=== PATIENT | female | born 1975 | race Caucasian/White ===

== ENCOUNTER 2024-10-24 13:10 | Outpatient (REF) | payer MEDICAID, SELFPAY ==
[2024-10-24 14:05] LABS: Hematocrit 41.5 % (37.0-47.0); Hemoglobin 13.9 g/dl (12.0-16.0); Mean Corpuscular HGB Conc 33.5 g/dl (31.0-35.0); Mean Corpuscular Hemoglobin 31.9 pg (27.0-33.0); Mean Corpuscular Volume 95.2 fL (80.0-98.0); Platelet Count 187 X10*3/uL (160-400); Red Blood Count 4.36 X10*6/uL (4.20-5.50); Red Cell Distribution Width 12.8 % (11.0-16.0); White Blood Count 7.5 X10*3/uL (4.8-10.8)
[2024-10-24 14:15] LABS: Estimated Average Glucose 88 mg/dL; Hemoglobin A1C 100.0005 umol/L; Hemoglobin A1c % 4.7 % (<6.0); Total Hemoglobin (HGBA1C) 3531.0427 umol/L
[2024-10-24 14:33] LABS: Valproate 39.2 mcg/mL (50.0-100.0)
[2024-10-24 14:46] LABS: Alanine Aminotransferase 17 U/L (0-31); Albumin Level 3.8 g/dL (3.5-5.0); Alkaline Phosphatase 69 U/L (39-117); Anion Gap 11 (12-20); Aspartate Amino Transferase 22 U/L (5-31); Bilirubin Direct 0.1 mg/dL (0.0-0.5); Bilirubin Total 0.3 mg/dL (0.0-1.0); Blood Urea Nitrogen 16 mg/dL (9-16); Calcium 8.4 mg/dL (8.4-10.2); Carbon Dioxide 25 mmol/L (22-29); Chloride 105 mmol/L (96-108); Cholesterol 175 mg/dL (<200); Estimated Glomerular Filt Rate > 60; Glucose Random 95 mg/dL (60-115); HDL Cholesterol 51 mg/dL (>40); LDL Cholesterol Calculated 110 mg/dL (<100); Potassium 3.8 mmol/L (3.3-5.1); Sodium 137 mmol/L (135-145); Total Protein 6.7 g/dL (6.5-8.0); Triglycerides 73 mg/dL (<150)
[2024-10-24 15:00] LABS: Free T4 (Free Thyroxine) 0.78 ng/dL (0.71-1.85); Thyroid Stimulating Hormone 3.13 uIU/mL (0.32-4.0); Vitamin D 25-OH Total 43.3 ng/mL (>30)
[2024-10-24 15:26] LABS: Hepatitis A Antibody IgG Nonreactive (Nonreactive); ~Hepatitis A Antibody IgG 0.31 S/CO (0.00-0.99)
[2024-10-24 15:27] LABS: HBc Num1 0.12 S/CO (0.00-0.79); HBsAGNum1 0.38 S/CO (0.00-0.99); HIV AB/AG Nonreactive (Nonreactive); HIV Num 1 0.06 S/CO (0.00-0.99); Hepatitis B Core Antibody Nonreactive (Nonreactive); Hepatitis B Surface Antigen Negative (Negative); ~HepC Num1 0.15 S/CO (0.00-0.79); ~Hepatitis B Surface Antibody NONREACTIVE (Nonreactive); ~Hepatitis C Antibody Nonreactive (Nonreactive)
[2024-10-24 15:48] LABS: CT PCR NOT DETECTED (Not Detect.); NG PCR NOT DETECTED (Not Detect.)
[2024-10-25 12:18] LABS: RPR Rapid Plasma Reagin NON-REACTIVE (NON-REACTIVE)
== END 2024-10-24 13:11 | disposition home or self-care (01) ==
LOC: HO.LAB 13:10
PROVIDERS: PCP Family Medicine; Visit Provider Family Medicine
DX: Z11.3 Encounter for screening for infections with a predominantly sexual mode of transmission (principal); Z11.4 Encounter for screening for human immunodeficiency virus [HIV]; R56.9 Unspecified convulsions; Z86.79 Personal history of other diseases of the circulatory system
CPT/HCPCS: 80048; 80061; 80076; 80164; 82306; 83036; 84439; 84443; 85027; 86592; 86704; 86706; 86708; 86803; 87340; 87389; 87491; 87591

== ENCOUNTER 2024-12-18 13:10 | Outpatient (REF) | payer MEDICAID, SELFPAY ==
--- NOTE | ~2024-12-18 | US_ITS ---
CLINICAL HISTORY: episode of post menopausal spotting US pelvis Transabdominal and transvaginal Comparison: None Findings: Uterus measures 5.9 x 3.3 x 4.1 cm Normal myometrium. Endometrium 4 mm thickness. Right ovary 1.8 x 1.2 x 1m. Left ovary 1.4 x 1.2 x 1.6 cm. No free fluid. IMPRESSION: Unremarkable exam. No evidence of endometrial thickening. This document has been electronically signed by: Oksana Carmona MD on 12/19/2024 10:43:26
--- OUTSIDE RECORDS SUMMARY | 2024-12-18 13:28 | XMS_ITS | Encounter Summary ---
Author Organization [facility] Address [address] [place] [address] Care Team Providers Care Diploma Maker Name Role Phone Jalen Martinez MD Primary Care [facility] Reason for Visit * Consultation (Routine) - Authorized Specialty Diagnoses / Procedures Referred By Contdakota t Referred To Contact Physical Therapy Diagnoses SAH (subarachnoid hemorrhage) (CMS/HCC) Subarachnoid hemorrhage ([facility]/HCC) Dayana James, [place] [address] Phone: tel: fax: [address] [address] Phone: tel: fax: Referral ID Status Reason Start Date Expiration Date Visits Requested Visits Authorized [id number] Authorized Specialty Services Required 4 09/11/2025 20 12 Encounter Details Date Type Department Care Team (Late st Contact Info) Description 11/21/2024 2:15 PM EST Treatment [address] [address] Mary Olmstead PT SAH (subarachnoid hemorrhage) (CMS/HCC) (Primary Dx) Social History Tobacco Use Types Packs/Day Years Used Date Smoking Tobacco: Former Cigarettes Q uit: 2012 Alcohol Use Standard Drinks/Week Comments Yes 3 (1 standard drink = 0.6 oz pur e alcohol) Health Literacy Answer Date Recorded How often do you need to hav e someone help you when you read instructions, pamphlets, or other written material from your doctor or pharmacy? Never 10/01/2024 Caregiver: How often do you need to have someone help you when you read instructions, pamphlets, or other written material from your doctor or pharmacy? Not on file 10/01/2024 Social Isolation Answer Date Recorded How often do you feel lonely or isolated from th ose around you? Never 10/01/2024 Interpersonal Safety Answer Date Record ed Physical Abuse 09/07/2024 Verbal Abuse 09/07/2024 Comments Unknown Sex and Gender Information Value Date Recorded Sex Assigned at Female 12/13/2024 11:15 AM EST Legal Sex Female 8:53 AM EST Gender Identity Female 12/13/2024 11:15 AM EST Sexual Orientation Straight 12/13/2024 11 :15 AM EST documented as of this encounter Progress Notes * Mary Olmstead PT - 11/21/2024 2:15 PM EST [facility] - Outpatient PHYSICAL THERAPY DAILY TREATMENT NOTE - OP Date: 11/21/2024 Visit Number: 3 Patient Name: Jessica Arana : 1975 Age: 48 y.o. Gender: female Diagnosis: ICD-10-CM ICD-9-CM 1. SAH (subarachnoid hemorrhage) (CMS/[facility]) I60.9 430 Date of Onset/Surgery: 11/06/2024 Referring Provider: Dayana James DO Insurance: Payor: [place]ICA[place] - [place] / Plan: MEDICA[place] - [place] / Product Type: *No Product type* / Patient Identified by: Mary Olmstead PT Language: Samoan Medications: Current Outpatient Medications on File Prior to Visit Medication Sig Dispense Refill cholecalciferol (VITAMIN D-3) 50 mcg (2,000 unit) tablet Take 1 tablet (2,000 Units total) by mouth1 (one) time each day. 30 tablet 0 cyanocobalamin (VITAMIN B-12) 100 mcg tablet Take 1 tablet (100 mcg total) by mouth 1 (one) time each day. divalproex (DEPAKOTE ER) 250 mg 24 hr tablet Take 1 tablet (250 mg total) by mouth at bedtime. Do not crush, chew, or split. 30 each 0 divalproex (DEPAKOTE ER) 500 mg 24 hr tablet Take 1 tablet (500 mg total) by mouth 1 (one) time each day in the morning. Do not crush, chew, or split. 30 each 0 folic acid (FOLVITE) 1 mg tablet Take 1 tablet (1 mg total) by mouth 1 (one) time each day. thiamine 100 mg tablet Take 1 tablet (100 mg total) by mouth 1 (one) time each day. traZODone (DESYREL) 50 mg tablet Take 0.5 tablets (25 mg total) by mouth at bedtime. 15 each 0 No current facility-administered medications on file prior to visit. Allergies: is allergic to ibuprofen. Precautions: Fall risk: No Patient/Caregiver Goals: SUBJECTIVE Subjective Report: No new complaints since evaluation last visit Chart Reviewed: Yes Pain No pain of BLE OBJECTIVE TREATMENT INTERVENTION: Modalities: None performed Procedures: Nustep at level 5 B Les only as a neural primer Sit-stands from mat to no device with arms crossed and R foot on foam beam to improve L sided weight bearing. Pt needing cues to remain on L midfoot and not rise up onto toes. B LE gastroc stretch on wedge, 2x30 seconds. B LE toe taps to steps. Impaired coordination noted which was exacerbated with cue for double tap. Pt also with stance control deficit on L LE with intermittent cross over step and reach to rail to correct imbalance. R LE step ups to 6 in block in parallel bars with L LE prepositioned on box to improve L LE strength and weightbearing. 2 rounds to fatigue Toe walking for functional strengthening of PF and improved balance. Heel walking for functional strengthening of DF and balance control. Reduced DF activation on L side with rapid stepping rate and reduced step length. Sidestepping with blue band around B distal femurs to increase strength in B abductors. ASSESSMENT/Response to Treatment Good Pt tolerated session well. Pt demonstrating impaired coordination and reduced strength in L LEresulting in functional deficits. Will continue to benefit. Patient Education: Education provided: Yes Education Provided To: Patient utilizing Explanation mode(s) of education Response to Education: Applied Knowledge and Verbal Understanding PLAN POC Development/Review: No Change in the Plan of Care; Participants: Patient Total Treatment Time: 30 Modalities: Therapeutic procedures: Therapeutic Exercise Time Entry: 30 Documentation completed by Mary Olmstead PT documented in this encounter Plan of Treatment Upcoming Encounters Date Type Department Care Team (Late st Contact Info) Description 12/19/2024 1:00 PM EST Treatment [facility] [address] [phone] Lauri Rivera COTA/L 12/19/2024 1:45 PM EST [facility] [address] [address] Jayjay Childs, INSTRUMENT REPAIR TECHNICIAN 12/24/2024 12:30 PM EST Treatment [facility] [address] [address] Lauri Rivera COTA/Teena 12/26/2024 11:15 AM EST Treatment [facility] [address] [address] Erasmo Choudhury, OT 12/26/2024 12:00 PM EST [facility] [address] [address] Jayjay Childs, INSTRUMENT REPAIR TECHNICIAN 01/01/2025 1:00 PM EST Treatment [facility] [address] [phone] Bea Rebollar, PT 01/01/2025 1:45 PM EST [facility] [address] [address] Jayjay Childs, INSTRUMENT REPAIR TECHNICIAN 01/03/2025 11:15 AM EST Treatment [facility] [address] [phone] Jayjay Childs, INSTRUMENT REPAIR TECHNICIAN 01/08/2025 1:15 PM EDT [facility] [address] [address] Lauri Rivera GODOY/L 01/08/2025 2:00 PM EDT Treatment [facility] [address] [phone] Keturah Bea, PT 01/10/2025 12:30 PM EDT Treatment [facility] [address] [phone] Nicole LauriDANIELA/Teena 01/13/2025 12:30 PM EDT Treatment [facility] [address] [facility] [address] [place] [address] Erasmo Choudhury, OT documented as of this encounter Goals Goal Patient Goal Type Associated Problems Recent Progress Patient-Stated? Author Pt goal General Yes Erasmo Choudhury, OT Note: To be back to normal STG 6-8 visits General No change(12/02 4:58 PM EST) Yes Erasmo Choudhury, OT Note: Patient will demo Lsh flex AROM>= 130 to be able to reach the soap in the shower - Not Met Patient will demo L sh abd AROM>= 100 to be able to dress with increased ease - Not met Patient will demo L family medicine physician assistant strength >= 19 to be able to open a jar with moderate difficulty - Not met Patient will demo L lateral pinch strength >= 11 to be able to open snack bags - Not met Patient will demo improved FMC as evidenced by L 9 hole peg test<= 49 sec to be able to manipulate utensils - Not met Patient will demo improved GMC as evidenced by L box and blocks score >= 38 to be able todress with increased ease - Not Met Patient will demo improved functional use of L upper extremity as evidenced by Quick Dash score <= 30 to be able to perform IADLS with increased ease - Not Met Patient will perform initial HEP MOD I LTG 16 visits General No change(12/02 4:58 PM EST) No Erasmo Choudhury, OT Note: Patient will demo L UE AROM WFL Patient will demo L UE strength WFL for IADLs, Patient will demo L family medicine physician assistant strength >= 24# to be able to hold a pot for cooking, Patient will demo L lateral pinch strength >= 13 to be able to open containers, Patient will demo improved FMC as evidenced by L 9 hole peg test<= 45 sec to be able to manipulate utensils, Patient will demo improved GMC as evidenced by L box and blocks score >= 42 to be able to paint, Patient will demo improved functional use of L upper extremity as evidenced by Quick Dash score <= 25 to be able to decorate cakes, and Patient will perform HEP MOD I PT STGs (x6 visits) General Yes Bea Rebollar PT Note: Improve L hip extension and abduction strength to >/= 4-/5 for functional mobility and stability Improve score on CAT to 56/56 for improvements in static and dynamic balance and stability Complete sit to stand with equal weight bearing between LLE and RLE PT LTGs (x12 visits) General Yes Bea Rebollar PT Note: Improve score on 5xSTS to </= 12 seconds to show increase in functional strength and decreased falls risk Improve score on 6MWT to >/= 1300ft to show improvement in endurance Improve score on FGA to >/= 25 to show improvements in dynamic balance. 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 Pt will improve L hip flexion, extension and abduction to >/= 4/5 for strength and stability Pt will be independent with HEP for maintenance of gains made in skilled physical therapy documented as of this encounter Visit Diagnoses Diagnosis SAH (subarachnoid hemorrhage) (CMS/HCC)- Primary Subarachnoid hemorrhage documented in this encounter Additional Health Concerns Assessment Noted Time PHQ-9 Depression Total Score: 0 10/01/20 24 5:02 PM EST documented as of this encounter Care Teams Diploma Maker Relationship Specialty Start Date End Date Jalen Martinez MD [address] [place] [phone] PCP - General Internal Medicine 10/01/24 documented as of this encounter
--- OUTSIDE RECORDS SUMMARY | 2024-12-18 13:28 | XMS_ITS | Encounter Summary ---
Author Organization [facility] Address [address] [place] [address] Care Team Providers Care Crisis Therapist Name Role Phone Jalen Martinez MD Primary Care [facility] Encounter Details Date Type Department Care Team (Late Contact Info) Description 12/12/2024 Telephone [facility] [address] [phone] Lauri Rivera COTA/Teena Social History Tobacco Use Types Packs/Day Years [...] AM EST documented as of this encounter Plan of Treatment Upcoming Encounters Date Type Department Care Team (Late st Contact Info) Description 12/19/2024 1:00 PM EST Treatment [facility] [address] [address] Lauri Rivera COTA/Teena 12/19/2024 1:45 PM EST Treatment [facility] [address] [phone] Jayjay Childs, FINANCIAL INSTITUTION BRANCH MANAGER 12/24/2024 12:30 PM EST Treatment [facility] [address] [address] Lauri Rivera GODOY/L 12/26/2024 11:15 AM EST Treatment [facility] [address] [address] Erasmo Choudhury, OT 12/26/2024 12:00 PM EST Treatment [facility] [address] [address] Jayjay Childs, FINANCIAL INSTITUTION BRANCH MANAGER 01/01/2025 1:00 PM EST Treatment [facility] [address] [address] Bea Rebollar, PT 01/01/2025 1:45 PM EST Treatment [facility] [address] [address] Jayjay Childs, FINANCIAL INSTITUTION BRANCH MANAGER 01/03/2025 11:15 AM EST Treatment [facility] [address] [facility] [address] [address] Jayjay Childs, FINANCIAL INSTITUTION BRANCH MANAGER 01/08/2025 1:15 PM EDT Treatment [facility] [address] [address] Lauri Rivera GODOY/L 01/08/2025 2:00 PM EDT Treatment [facility] [address] [phone] Bea Rebollar, PT 01/10/2025 12:30 PM EDT [facility] [address] [place] [address] Tabatha RiveragraceWALT maldonado/Teena 01/13/2025 12:30 PM EDT Treatment [facility] [address] [phone] Erasmo Choudhury, OT documented as of [...] - Not met Patient 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 Pt will improve L hip flexion, extension and abduction to >/= 4/5 for strength and stability Pt will be independent with HEP for maintenance of gains made in skilled physical therapy documented as of this encounter Visit Diagnoses Not on filedocumented in this encounter Additional Health Concerns Assessment Noted Time PHQ-9 Depression Total Score: 0 10/01/20 24 5:02 PM EST documented as of this encounter Care Teams Crisis Therapist Relationship Specialty Start Date End Date Jalen Martinez MD [address] [place] [phone] PCP - General Internal Medicine 10/01/24 documented as of this encounter
--- OUTSIDE RECORDS SUMMARY | 2024-12-18 13:28 | XMS_ITS | Encounter Summary ---
Author Organization [employer] Address [address] [place] [address] Care Team Providers Care Quality Nurse Name Role Phone Patricia Sun Primary Care Provider + [phone] Encounter Details Date Type Department Care Team (Latest Contact Info) Description 11/22/2024 Travel Social History Tobacco Use Types Packs/Day Years Used Date Smoking Tobacco: Never Passive Smoke Exposure: Never Smokeless Tobacco: Never Alcohol Answer Date Recorded How often do you have a drink containing alcohol ? 1 10/10/2024 How many drinks containing a lcohol do you have on a typical day when you are drinking? 0 10/10/2024 How often do you have six or more drinks on one occasion? 0 10/10/2024 Depression Answer Date Recorded Patient Health Questionnaire-9 Score 5 10/10/2024 Patient Health Questionnaire-9 Score 5 10/10/2024 Last PHQ-9: Questionnaire Data Not on file 1 12/11/2023 Housing Stability Answer Date Recorded What is your housing situation today? I have concepción astudillo 10/10/[address] you li ve. Do you have problems with any of the following? None of the above 10/10/2024 Food Insecurity Answer Date Recorded Within the past 12 months, y ou worried that your food would run out before you got money to buy more: Never True 10/10/2024 Within the past 12 months,th e food you bought just didn't last and you didn't have enough money to get more: Never True 09/2024 Transportation Answer Date Recorded In the past 12 months, has l ack of transportation kept you from medical appts, meetings, work or from getting things needed for daily living? No 10/10/2024 Utilities Answer Date Recorded In the past 12 months, has t he electric, gas, oil or water company threatened to shut off services in your home? No 10/10/2024 Depression Answer Date Recorded Patient Health Questionnaire-2 Score 0 10/10/2024 Internet Access Answer Date Recorded Internet Access Q1 Yes 10/10/2024 Internet Access Q2 Not on file 10/10/2024 Comments Unknown Sex and Gender Information Value Date Recorded Sex Assigned at Unknown 10/10/2024 11:22 AM EST Legal Sex Female 11:27 AM EDT Gender Identity Other 10/10/2024 11:22 AM EST Sexual Orientation Don't know 10/10/2024 11 :22 AM EST documented as of this encounter Plan of Treatment Upcoming Encounters Date Type Department Care Team (Late st Contact Info) Description 03/17/2025 3:30 PM EDT Office Visit [facility] [address] [place] [address] Ihsan, Aura, OD [address] [place] [address] documented as of this encounter Visit Diagnoses Not on filedocumented in this encounter Additional Health Concerns Assessment Noted Time PHQ-9 Depression Total Score: 5 10/10/20 11:44 AM EST documented as of this encounter Care Teams Quality Nurse Relationship Specialty Start Date End Date Patricia Sun DO [address] [place] [address] PCP - General Family Medicine 10/10/24 documented as of this encounter
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
--- OUTSIDE RECORDS SUMMARY | 2024-12-18 13:28 | XMS_ITS | Encounter Summary ---
Author Organization [facility] Address [address] [place] [address] Care Team Providers Care Booking Manager Name Role Phone Jalen Martinez MD Primary Care [facility] Reason for Visit * Consultation (Routine) - Authorized Specialty Diagnoses / Procedures Referred By Contdakota t Referred To Contact Occupational Therapy Diagnoses SAH (subarachnoid hemorrhage) ([facility]/HCC) Subarachnoid hemorrhage ([facility]/HCC) Dayana James DO [address] [place] [address] Phone: tel: fax: [facility] Occupational Therapy [address] [address] Phone: tel: fax: Referral ID Status Reason Start Date Expiration Date Visits Requested Visits Authorized [id number] Authorized Specialty Services Required 09/11/2025 20 16 Encounter Details Date Type Department Care Team (Late st Contact Info) Description 11/21/2024 1:00 PM EST Treatment [facility] [address] [phone] Consuelo Ro COTA SAH (subarachnoid hemorrhage) ([facility]/HCC) (Primary Dx) Social History Tobacco Use Types [...] as of this encounter Progress Notes * WALT Pineda - 11/21/2024 1:00 PM EST [facility] - Outpatient OCCUPATIONAL THERAPY DAILY TREATMENT NOTE Date: 11/21/2024 Visit Number: [id number] Patient Name: Jessica Arana : 1975 Age: 48 y.o. Gender: female Diagnosis: No diagnosis found. Date of Onset: 09/11/2024 Referring Provider: Dayana James DO Insurance: Pay[place] / Plan[place] / Product Type: *No Product type* / Language: Speaks and understands Belizean as preferred language with no yard associate required Allergies: is allergic to ibuprofen. Precautions: None specified SUBJECTIVE Subjective Report: I felt a pop in my L shld when my rolled over and pushed himself up.and hurts with certain movement when I am laying down. Pain: More tightness in bicep and into forearm. 04/08 OBJECTIVE Pt able to manage personal items TREATMENT INTERVENTION Procedures: MHP to L UE. While performing FMC with small pegs. Pt manipulating 4-6 pegs in hand to place in board. Pt dropping pegs frequently , able to pick them up from table 1 at a time. Pt removed pegs and place them in slotted container. In side lying scap mobs, and AAROM for shld abd in no pain Range.supine AROM shld flexion/ext to 90degrees with no pain and increase control IR /ER with no pain. Pain Reassessment: no pain with exercises. Recommended pt do activities in pain free range. And have family help with heavy items. Per pt reports family has been helping with task. Assessment/Response To Treatment: Good Pt tolerated exercises with no pain Patient Education: Education provided: Yes Education Provided To: Patient utilizing Explanation mode(s) of education Response to Education: Good PLAN POC Development/Review: No Change in the Plan of Care; Participants: Patient Equipment Recommended: none; Equipment Provided: none Total Treatment Time: 45 Documentation completed by WALT Pineda documented in this encounter Plan of Treatment Upcoming Encounters Date Type Department Care Team (Late st Contact Info) Description 12/19/2024 1:00 PM EST Treatment [facility] Occupational Therapy [address] [place] [phone] Lauri Rivera COTA/Teena 12/19/2024 1:45 PM EST Treatment [address] [phone] Jayjay Childs, REPAIR TECHNICIAN 12/24/2024 12:30 PM EST Treatment [facility] Occupational Therapy [address] [place] [phone] Lauri Rivera COTA/Teena 12/26/2024 11:15 AM EST Treatment [facility] Occupational Therapy [address] [place] [phone] Erasmo Choudhury, OT 12/26/2024 12:00 PM EST Treatment [facility] [address] [phone] Jayjay Childs, REPAIR TECHNICIAN 01/01/2025 1:00 PM EST Treatment [facility] [address] [phone] Bea Rebollar, PT 01/01/2025 1:45 PM EST Treatment [address] [phone] Jayjay Childs, REPAIR TECHNICIAN 01/03/2025 11:15 AM EST Treatment [facility] [address] [phone] Jayjay Childs, REPAIR TECHNICIAN 01/08/2025 1:15 PM EDT Treatment [facility] Occupational [facility] [address] [phone] Lauri Rivera GODOY/Teena 01/08/2025 2:00 PM EDT Treatment [facility] [address] [phone] Bea Rebollar, PT 01/10/2025 12:30 PM EDT Treatment [facility] Occupational [facility] [address] [phone] Lauri Rivera GODOY/L 01/13/2025 12:30 PM EDT Treatment [facility] Occupational [facility] [address] [phone] Erasmo Choudhury, OT documented as of this [...] - Not met Patient will demo L public information specialist strength >= 19 to be able to [...] WFL for IADLs, Patient will demo L public information specialist strength >= 24# to be able to [...] PT STGs (x6 visits) General Yes Bea Rebollar, PT Note: Improve L hip extension and abduction strength to >/= 4-/5 for functional mobility and stability Improve score on CAT to 56/56 for improvements in static and dynamic balance and stability Complete sit to stand with equal weight bearing between LLE and RLE PT LTGs (x12 visits) General Yes Bea Rebollar, PT Note: Improve score on 5xSTS to </= 12 seconds to show increase in functional strength and decreased falls risk Improve score on 6MWT to >/= 1300ft to show improvement in endurance Improve score on FGA to >/= 25 to show improvements in dynamic balance. 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 Pt will improve L hip flexion, extension and abduction to >/= 4/5 for strength and stability Pt will be independent with HEP for maintenance of gains made in skilled physical therapy documented as of this encounter Visit Diagnoses Diagnosis SAH (subarachnoid hemorrhage) ([facility])- Primary Subarachnoid hemorrhage documented in this encounter Additional Health Concerns Assessment Noted Time PHQ-9 Depression Total Score: 0 10/01/20 24 5:02 PM EST documented as of this encounter Care Teams Booking Manager Relationship Specialty Start Date End Date Jalen Martinez MD [address] [place] [address] PCP - General Internal Medicine 10/01/24 documented as of this encounter
--- OUTSIDE RECORDS SUMMARY | 2024-12-18 13:28 | XMS_ITS | Encounter Summary ---
Author Organization [employer] Address [address] [facility] [address] [place] [address] Care Team Providers Care Gambling Box Person Name Role Phone Patricia Sun DO Primary Care Provider + [phone] Reason for Visit * Reason Comments Pre-visit Planning (Unable to reach for PVP screening, LVM) Encounter Details Date Type Department Care Team ([facility] Contact Info) Description 11/19/2024 Patient Outreach [facility] [address] [place] [address] Patricia Sun DO [address] [place] [address] Pre-visit Planning ((Unable to reach for PVP screening, LVM)) Social History Tobacco Use Types Packs/Day Years [...] as of this encounter Progress Notes * Jeane Dickinson - 11/19/2024 1:11 PM EST CC Jeane. Placed outbound call to patient to complete pre-visit planning. No answer at this time. Patient name and were not confirmed. CC left voicemail requesting return call. Direct contact information provided. documented in this encounter Plan of Treatment Upcoming Encounters Date Type Department Care Team (Late st Contact Info) Description 03/17/2025 3:30 PM EDT Office Visit [facility] OPTOMETRY [address] [place] [address] Ihsan, Aura, OD [address] [place] [address] documented as of this encounter Visit Diagnoses Not on filedocumented in this encounter Additional Health Concerns Assessment Noted Time PHQ-9 Depression Total Score: 5 10/10/20 24 11:44 AM EST documented as of this encounter Care Teams Gambling Box Person Relationship Specialty Start Date End Date Patricia Sun DO [address] [place] [address] PCP - General Family Medicine 10/10/24 documented as of this encounter
--- OUTSIDE RECORDS SUMMARY | 2024-12-18 13:28 | XMS_ITS | Encounter Summary ---
Author Organization [employer] Address [address] [facility] [address] [place] [address] Care Team Providers Care Extra Hand Name Role Phone Patricia Sun Primary Care Provider + [phone] Encounter Details Date Type Department Care Team (Latest Contact Info) Description 11/26/2024 Travel Social History Tobacco Use Types Packs/Day [...] Description 03/17/2025 3:30 PM EDT Office Visit [facility] OPTOMETRY [address] [place] [address] Ihsan, Aura, OD [address] [place] [address] documented as of this encounter Visit Diagnoses Not on filedocumented in this encounter Additional Health Concerns Assessment Noted Time PHQ-9 Depression Total Score: 5 10/10/20 11:44 AM EST documented as of this encounter Care Teams Extra Hand Relationship Specialty Start Date End Date Patricia Sun DO [address] [place] [address] PCP - General Family Medicine 10/10/24 documented as of this encounter
--- OUTSIDE RECORDS SUMMARY | 2024-12-18 13:28 | XMS_ITS | Clinical Summary ---
Author Organization [employer] Address [address] [facility] [address] [place] [address] Care Team Providers Care Service Order Dispatcher Chief Name Role Phone Patricia Sun Primary Care Provider + [phone] Allergies Active Allergy Reactions Criticality Noted Date Comments Bee Venom Hives 11/24/2024 Grapefruit Concentrate Swelling 11/24/2024 Ibuprofen Swelling 09/04/2024 Medications divalproex (Depakote ER) 500 MG 24 hr tablet Take 1 tablet by mouth in the morning. Do not crush, chew or split. Active cholecalcifero l (Vitamin D-3) 50 MCG (1999 UT) tablet Take 1 tablet by mouth Once per day. 10/02/20 24 025 Active tiZANidine (Zanaflex) 2 MG tablet Take 1 tablet (2 mg) by mouth if needed in the morning, at noon, and at bedtime for muscle spasms. 60 tablet 1 12/02/19 25 026 Active acetaminophen (Tylenol 8 Hour) 650 MG ER tablet Take 1 tablet (650 mg) by mouth every 8 (eight) hours if needed for mild pain. Do not crush, chew, or split. 50 tablet 1 12/02/19 25 026 Active lacosamide (Vimpat) 100 MG tablet TAKE 1 TABLET BY MOUTH EVERY DAY AT BEDTIME FOR 1 WEEK THEN INCREASE TO 1 TABLET TWICE A DAY Active tiZANidine (Zanaflex) 2 MG tablet Take 1 tablet (2 mg) by mouth if needed in the morning, at noon, and at bedtime for muscle spasms. 60 tablet 1 11/29/19 25 025 Discontinued(Re order (will not trigger notification to Pharmacy)) acetaminophen (Tylenol 8 Hour) 650 MG ER tablet Take 1 tablet (650 mg) by mouth every 8 (eight) hours if needed for mild pain. Do not crush, chew, or split. 50 tablet 1 11/29/19 25 025 Discontinued(Re order (will not trigger notification to Pharmacy)) Active Problems Problem Noted Date Diagnosed Date History of subarachnoid hemorrhage 11/24/2024 History of traumatic brain injury 11/24/2024 History of seizures 11/24/2024 Encounters Date Type Department Care Team Description 12/02/2024 Refill [facility] [address] [place] [phone] Patricia Sun DO 11/29/2024 11:15 AM EST Office Visit [facility] [address] [place] [phone] Patricia Sun DO Routine history and physical examination of adult (Primary Dx); Seizure disorder (CMS/HCC); History of subarachnoid hemorrhage; Abnormal MRI, cervical spine; Postmenopausal bleeding; BMI 23.0-23.9, adult; Encounter for screening for malignant neoplasm of colon; Encounter for screening mammogram for malignant neoplasm of breast 11/29/2024 Telephone [facility] [address] [place] [phone] Delia Muhammad MA Confirm Pharmacy 11/29/2024 Travel 11/26/2024 3:30 PM EST Office Visit [facility] [address] [place] [address] Aura Champagne, OD History of subarachnoid hemorrhage (Primary Dx); 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; Blepharitis of both eyes, unspecified eyelid, unspecified type; PVD (posterior vitreous detachment), right eye; Presbyopia of both eyes 11/26/2024 Travel 11/25/2024 Telephone [facility] [address] [place] [address] Aura Champagne, OD 11/22/2024 Travel 11/19/2024 Patient Outreach [facility] [address] [place] [address] Patricia Sun DO Pre-visit Planning ((Unable to reach for PVP screening, LVM)) 11/08/2024 Orders Only [facility] [address] [place] [address], [place] [address] Patricia Sun DO Subarachnoid hemorrhage (CMS/HCC) (Primary Dx) 11/07/[address] [phone] Violeta Callaway, RN Results 11/06/[address] [address] Patricia Sun DO Referral 10/17/[address] [phone] Patricia Sun DO fyi 10/10/2024 11:15 AM EST Office Visit [address] [address] Patricia Sun DO Diffuse brain injury, with unknown loss of consciousness status, initial encounter (CMS/HCC) (Primary Dx); History of subarachnoid hemorrhage; Abnormal MRI, cervical spine; Seizure-like activity (CMS/HCC); Decreased visual acuity; Closed fracture of nasal bone, initial encounter; Postmenopausal bleeding 10/10/2024 Travel 10/09/2024 Travel 10/09/2024 Patient Outreach [address] [address] Chika Arias, IVORY Care Coordination (RACE RELATIONS PROFESSOR/HDF Appt) 10/03/2024 Travel 10/03/[address] [address] Jackie Frost MA Chat Prep 09/24/2024 Patient Outreach [facility] [address] [place], [place] [phone] Jalen Coyne MD Transition Of Care (Tcm) (HDF scheduled. SDOH will need to be completed in office. ) from Last 3 Months Immunizations Name Administration Dates Next Due Tdap 03/22/2012 Family History Relation Name Status Comments Brother Father Father's Brother Father's Sister Maternal Grandfather Maternal Grandmother Mother Mother's Brother Mother's Sister Other Paternal Grandfather Paternal Grandmother Sister Social History Tobacco Use Types Packs/Day Years Used Date Smoking Tobacco: Former Cigarettes Passive Smoke Exposure: Never Smokeless Tobacco: Never Tobacco Cessation:Counseling Given: Not Answered Alcohol Use Standard Drinks/Week Comments Not Currently [...] Don't know 10/10/2024 11 :22 AM EST Last Filed Vital Signs Vital Sign Reading [...] Mass Index 23.45 11/29/2024 11:26 AM EST Plan of Treatment Upcoming Encounters Date Type Department Care Team (Late st Contact Info) Description 03/17/2025 3:30 PM EDT Office Visit [facility] [address] [place] [facility], [place] [phone] Ihsan, Aura, OD [address] [place] [address] Health Maintenance Due Date Last Done Comments CT Colonography 1974 Colonoscopy 1974 Colorectal Cancer Screening 1974 FIT DNA/Cologuard 1974 FIT 1974 FOBT 1974 Sigmoidoscopy 1974 Family Planning (PISQ) 1989 Hepatitis B Vaccines (1 of 3 - 19+ 3-dose series) 1993 Pap Smear 1995 Cervical Cancer Screening 2004 HPV/Cotest 2004 Mammogram 2014 DTaP/Tdap/Td Vaccines (2 - T d or Tdap) 03/22/2022 03/22/2012 COVID-19 Vaccine (1 - 2023-2 5 season) 2024 Influenza Vaccine (#1) 2024 Pneumococcal Vaccine: 50+ Years (1 of 1 - PCV) 2024 Zoster Vaccines (1 of 2) 2024 Depression Screening 10/10/2025 10/10/2024, 10/10/2024 SDOH Screening 10/10/2025 10/10/2024 Alcohol/Substance Use Screening 11/29/2025 11/29/2024 Tobacco Screening 12/13/2025 12/13/2024 Lipid Panel 10/24/2029 10/24/2024 RSV Patients and Patients Aged 60 years or older (1 - 1-dose 75+ series) 2049 HIV Screening Completed 10/24/2024 Hepatitis C Screening Completed 10/24/2024 HIB Vaccines Aged Out No longer eligi ble based on patient's age to complete this topic HPV Vaccines Aged Out No longer eligi ble based on patient's age to complete this topic Hepatitis A Vaccines Aged Out No long er eligible based on patient's age to complete this topic IPV Vaccines Aged Out No longer eligi ble based on patient's age to complete this topic Meningococcal Vaccine Aged Out No key ellen eligible based on patient's age to complete this topic RSV under 20 months Aged Out No longe r eligible based on patient's age to complete this topic Rotavirus Vaccines Aged Out No longer eligible based on patient's age to complete this topic Procedures Procedure Name Priority Date/Time Associated Diagnosis Comments OCT, OPTIC NERVE - OU - BOTH EYES Routine 11/26/2024 3:30 PM EST 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 VALPROIC ACID Routine 10/24/2024 1:54 PM EST Seizure-like activity (CMS/HCC) History of subarachnoid hemorrhage HEPATITIS B CORE AB TOTAL Routine 10/24/2024 1:54 PM EST Seizure-like activity (CMS/HCC) History of subarachnoid hemorrhage HEPATITIS A ANTIBODY, TOTAL Routine 10/24/2024 1:54 PM EST Seizure-like activity (CMS/HCC) History of subarachnoid hemorrhage HEPATITIS B SURFACE ANTIBODY, QUALITATIVE Routine 10/24/2024 1:54 PM EST Seizure-like activity (CMS/HCC) History of subarachnoid hemorrhage RPR (MONITOR) W/REFL TITER Routine 10/24/2024 1:54 PM EST Seizure-like activity (CMS/HCC) History of subarachnoid hemorrhage HEPATITIS C AB W/REFL TO HCV RNA, QN, PCR Routine 10/24/2024 1:54 PM EST Seizure-like activity (CMS/HCC) History of subarachnoid hemorrhage HIV 1/2 ANTIGEN/ANTIBODY, FOURTH GENERATION W/RFL Routine 10/24/2024 1:54 PM EST Seizure-like activity (CMS/HCC) History of subarachnoid hemorrhage HEPATITIS B SURFACE ANTIGEN, EIA Routine 10/24/2024 1:54 PM EST Seizure-like activity (CMS/HCC) History of subarachnoid hemorrhage BASIC METABOLIC PANEL Routine 10/24/2024 1:54 PM EST Seizure-like activity (CMS/HCC) History of subarachnoid hemorrhage CBC Routine 10/24/2024 1:54 PM EST Seizure-like activity (CMS/HCC) History of subarachnoid hemorrhage HEMOGLOBIN A1C Routine 10/24/2024 1:54 PM EST Seizure-like activity (CMS/HCC) History of subarachnoid hemorrhage HEPATIC FUNCTION PANEL Routine 10/24/2024 1:54 PM EST Seizure-like activity (CMS/HCC) History of subarachnoid hemorrhage VITAMIN D,25-OH,TOTAL,IA Routine 10/24/2024 1:54 PM EST Seizure-like activity (CMS/HCC) History of subarachnoid hemorrhage TSH Routine 10/24/2024 1:54 PM EST Seizure-like activity (CMS/HCC) History of subarachnoid hemorrhage LIPID PANEL, STANDARD Routine 10/24/2024 1:54 PM EST Seizure-like activity (CMS/HCC) History of subarachnoid hemorrhage T4, FREE Routine 10/24/2024 1:54 PM EST Seizure-like activity (CMS/HCC) History of subarachnoid hemorrhage CHLAMYDIA/N. GONORRHOEAE RNA, TMA, UROGENITAL Routine 10/24/2024 1:21 PM EST Seizure-like activity (CMS/HCC) History of subarachnoid hemorrhage from Last 3 Months Results * OCT, Optic Nerve - OU - Both Eyes (11/26/2024 3:30 PM EST) Narrative Ihsan, Aura, OD - 12/03/2024 11:21 AM EST Right Eye Images reviewed. To assess optic nerve function and for use in future follow-up. Reliability: good and adequate. Left Eye Images reviewed. To assess optic nerve function and for use in future follow-up. Reliability: good and adequate. Notes OCT OPTIC NERVE INTERPRETATION Optical Coherence Tomography Interpretation Report Test Details: Measurements: OD ??OS C/D Horizontal 0.68 ??0.63 C/D Vertical 0.65 ??0.61 Disc area 2.22 mm 2 ??1.91 mm 2 RNFL Average 106 microns ??105 microns ?? Test findings: OD: moderate RNFL thinning temporal quadrant, normal RNFL in all other quadrants OS: normal RNFL all other quadrants Impression and Plan: Right optic nerve head larger than left optic nerve head. Right optic nerve cupping larger than left optic nerve cupping. No suspicion for glaucoma at this time. Will monitor at her her next exam. Aura Champagne OD OPHTH TOMOGRAPHY Edited * Vitamin D, 25-Hydroxy, Total, Immunoassay (10/24/2024 1:54 PM EST) Vitamin D 25-OH Total 43.3 >30 ng/mL [facility] Comment:Health Based Referen ce Values*< 20 ng/mL Luurxdtal26-39 ng/mL Insufficient> 30 ng/mL Sufficient*Christi SIMMS. N Engl J Med. 2007;357:266-280Care must be taken in interpreting Vitamin D results fromdifferent laboratories and methodologies. Published datademonstrated that results from patients undergoinghemodialysis may show a negative bias when tested withvarious automated 25-OH vitamin D assays when compared toLC-MS/MS.When testing samples from patients whose predominant form ofVitamin D is Vitamin D2, such as patients receiving VitaminD2 supplementation, results that are subtherapeutic shouldbe confirmed with another method such as LC-MS/MS. Blood Venous blood specimen / Unknown 10/24/2024 1:54 PM EST 10/24/2024 1:54 PM EST Patricia Sun DO LAB BLOOD ORDERABLES Final R esult Performing Organization Address [facility] Co de Phone Number [facility] [address] [place] [phone] * Hepatitis C Antibody with Reflex to HCV, RNA, Quantitative, Real-Time PCR (10/24/2024 1:54 PM EST) Hepatitis C Antibody Nonreactive Nonreactive [facility] Comment:Antibodies to HCV no t detected; does not exclude early acuteHCV infection. Blood Venous blood specimen / Unknown 10/24/2024 1:54 PM EST 10/24/2024 1:54 PM EST Patricia Sun DO LAB BLOOD ORDERABLES Final R esult Performing Organization Address [facility] de Phone Number [facility] [address] [place] [phone] * Hepatitis A Antibody, Total (10/24/2024 1:54 PM EST) Hepatitis A Antibody IgG Nonreactive Nonreactive [facility] Blood Venous blood specimen / Unknown 10/24/2024 1:54 PM EST 10/24/2024 1:54 PM EST Patricia Sun DO LAB BLOOD ORDERABLES Final R esult Performing Organization Address [facility] Co de Phone Number [facility] [address] [place] [phone] * Hepatitis B surface antigen, EIA (10/24/2024 1:54 PM EST) Hepatitis B Surface Ag Negative Negative [facility] Blood Venous blood specimen / Unknown 10/24/2024 1:54 PM EST 10/24/2024 1:54 PM EST Patricia Sun DO LAB BLOOD ORDERABLES Final R esult Performing Organization Address City/[facility] Co de Phone Number [facility] [address] [place] [phone] * Hepatitis B Core Antibody, Total (10/24/2024 1:54 PM EST) Hepatitis B Core Antibody Nonreactive Nonreactive [facility] Blood Venous blood specimen / Unknown 10/24/2024 1:54 PM EST 10/24/2024 1:54 PM EST Patricia Sun DO LAB BLOOD ORDERABLES Final R esult Performing Organization Address [facility] Co de Phone Number [facility] [address] [place] [phone] * RPR (Monitor) with Reflex to??Titer (10/24/2024 1:54 PM EST) RPR (Monitor) w/Refl Titer NON-REACTI VE NON-REACT JOSE [facility] Comment:THIS TEST WAS PERFOR MED AT:[employer] [place] [phone] MATUTE MD Rapid Plasma Reagin Ab Titer TNP [facility] Blood Venous blood specimen / Unknown 10/24/2024 1:54 PM EST 10/24/2024 1:54 PM EST Patricia Sun DO LAB BLOOD ORDERABLES Final R esult Performing Organization Address City/[facility]/ZIP Co de Phone Number [facility] [address] [place] [phone] * HIV-1/2 Antigen and Antibodies, Fourth Generation, with Reflexes (10/24/2024 1:54 PM EST) HIV AB/AG Nonreactive Nonreactive [facility] Comment:HIV-1 p24 Ag and/or HIV-1/HIV-2 Ab not detected.A test result that is nonreactive does not exclude thepossibility of exposure to or infection with HIV-1 and/orHIV-2. Nonreactive results in this assay for individualswith prior exposure to HIV-1 and/or HIV-2 may be due toantigen and antibody levels that are below the limit ofdetection of this assay.[employer] HIV Ag/Ab Combo assay result andsupplemental assay results should be interpreted inconjunction with the patient's clinical presentation,history and other laboratory results. If the results areinconsistent with clinical evidence, additional testing issuggested to confirm the result. Blood Venous blood specimen / Unknown 10/24/2024 1:54 PM EST 10/24/2024 1:54 PM EST Patricia Sun LAB BLOOD ORDERABLES Final R esult Performing Organization Address [facility] Co de Phone Number [facility] [address] [place] [phone] * Hepatitis B Surface Antibody, Qualitative (10/24/2024 1:54 PM EST) Pathologist [facility] ~Hepatitis B Surface Antibody NONREACTIVE Nonreactive [facility] Comment:Nonreactive: < 8.00 mIU/mL Blood Venous blood specimen / Unknown 10/24/2024 1:54 PM EST 10/24/2024 1:54 PM EST Patricia Sun DO LAB BLOOD ORDERABLES Final R esult Performing Organization Address [facility] Co de Phone Number [facility] [address] [place] [phone] * (ABNORMAL) CBC (10/24/2024 1:54 PM EST) Pathologist [facility] White Blood Count 7.5 4.8 - 10.8 X10*3/uL [facility] Red Blood Count 4.36 4.20 - 5.50 X10*6/uL [facility] Hemoglobin 13.9 12.0 - 16.0 g/dl [facility] Hematocrit 41.5 37.0 - 47.0 % [facility] Mean Corpuscular Volume 95.2 80.0 - 98.0 fL [facility] Mean Corpuscular Hemoglobin 31.9 27.0 - 33.0 pg [facility] Mean Corpuscular HGB Conc 33.5 31.0 - 35.0 g/dl [facility] Red Cell Distribution Width 12.8 11.0 - 16.0 % [facility] Platelet Count 187 160 - 400 X10*3/uL [facility] Mean Platelet Volume 9.0(L) 9.4 - 12.3 fL [facility] NRBC Pct Auto 0.0 0.0 - 0.2 /100WBC [facility] NRBC Abs Auto 0.000 0.0 - 0.012 X10*3/uL [facility] Blood Venous blood specimen / Unknown 10/24/2024 1:54 PM EST 10/24/2024 1:54 PM EST Patricia [employer] LAB BLOOD ORDERABLES Final R esult Performing Organization Address City/[facility]/ZIP Co de Phone Number [facility] [address] [place] [phone] * TSH (10/24/2024 1:54 PM EST) Thyroid Stimulating Hormone 3.13 0.32 - 4.0 uIU/mL [facility] Comment:Note: A sustained TS H level above 2.5 uIU/mL may warrant further investigation. TSH 3rd Generation (Sagence) Blood Venous blood specimen / Unknown 10/24/2024 1:54 PM EST 10/24/2024 1:54 PM EST Patricia [employer] LAB BLOOD ORDERABLES Final R esult Performing Organization Address City/[facility]/ZIP Co de Phone Number [facility] [address] [place] [phone] * T4, Free (10/24/2024 1:54 PM EST) Free T4 (Free Thyroxine) 0.78 0.71 - 1.85 ng/dL [facility] Blood Venous blood specimen / Unknown 10/24/2024 1:54 PM EST 10/24/2024 1:54 PM EST Patricia Dino LAB BLOOD ORDERABLES Final R esult [facility] [address] [place] [phone] * Hemoglobin A1c (10/24/2024 1:54 PM EST) Pathologist [facility] Hemoglobin A1c 4.7 <6.0 % [facility] Comment:Hemoglobin A1C Refer ence Range Adults: 4.8 - 6.0 % Non diabetic: < 6.0 % Goal: < 7.0 %Additional Action Suggested: > 8.0 %Note: Hemoglobin A1c results are invalid for patients with abnormal amounts of HbF. Blood transfusions may impact the HbA1c concentration in the patient sample. Estimated Average Glucose 88 mg/dL [facility] Comment:eAG = Estimated ave rage glucose which is %A1C expressed asaverage glucose, using the formula of the O8P-[id number] Glucose study (ADAG), Diabetes Care, Vol.31,#8,May. 2007 Blood Venous blood specimen / Unknown 10/24/2024 1:54 PM EST 10/24/2024 1:54 PM EST Patricia Sun DO LAB BLOOD ORDERABLES Final R esult Performing Organization Address City/[facility]/ZIP Co de Phone Number [facility] [address] [place] [phone] * (ABNORMAL) Valproic Acid Total (10/24/2024 1:54 PM EST) Pathologist [facility] Valproate 39.2(L) 50.0 - 100.0 mcg/mL [facility] Blood Venous blood specimen / Unknown 10/24/2024 1:54 PM EST 10/24/2024 1:54 PM EST Patricia Sun LAB BLOOD ORDERABLES Final R esult Performing Organization Address [facility] Co de Phone Number [facility] [address] [place] [phone] * Hepatic Function Panel (10/24/2024 1:54 PM EST) Bilirubin, Total 0.3 0.0 - 1.0 mg/dL [facility] Bilirubin, Direct 0.1 0.0 - 0.5 mg/dL [facility] Aspartate Amino Transferase 22 5 - 31 U/L [facility] Alanine Aminotransferase 17 0 - 31 U/L [facility] Total Protein 6.7 6.5 - 8.0 g/dL [facility] Albumin Level 3.8 3.5 - 5.0 g/dL [facility] Alkaline Phosphatase 69 39 - 117 U/L [facility] Blood Venous blood specimen / Unknown 10/24/2024 1:54 PM EST 10/24/2024 1:54 PM EST Patricia Sun DO LAB BLOOD ORDERABLES Final R esult Performing Organization Address [facility] Co de Phone Number [facility] [address] [place] [phone] * (ABNORMAL) Lipid Panel, Standard (10/24/2024 1:54 PM EST) Triglycerides 73 <150 mg/dL [facility] Comment:Desirable Triglyceri de: less than 150 mg/dLBorderline High Triglyceride 150-199 mg/dLHigh Triglyceride: 200-499 mg/dLVery High Triglyceride: greater than or equal to 5OO mg/dL Cholesterol 175 <200 mg/dL [facility] Comment:Desirable Cholestero l: less than 200 mg/dLBorderline High Cholesterol: 200-239 mg/dLHigh Cholesterol: greater than 239 mg/dL LDL Cholesterol Calculated 110(H) <100 mg/dL [facility] Comment:Desirable LDL: less than 100 mg/dLNear Optimal/Above Optimal LDL: 110- 129 mg/dLBorderline High LDL: 130-159 mg/dLHigh LDL: 160-189 mg/dLVery High LDL: greater than or equal to 190 mg/dL HDL Cholesterol 51 >40 mg/dL [facility] Comment:Desirable HDL: great er than 40 mg/dL Note: This HDL assay may give artificially low results in patients with liver disease. Blood Venous blood specimen / Unknown 10/24/2024 1:54 PM EST 10/24/2024 1:54 PM EST us Patricia Sun DO LAB BLOOD ORDERABLES Final R esult [facility] [address] [place], [place] [phone] * (ABNORMAL) Basic Metabolic Panel (10/24/2024 1:54 PM EST) Sodium 137 135 - 145 mmol/L [facility] Potassium 3.8 3.3 - 5.1 mmol/L [facility] Chloride 105 96 - 108 mmol/L [facility] Carbon Dioxide 25 22 - 29 mmol/L [facility] Anion Gap 11(L) 12 - 20 [facility] Urea Nitrogen (BUN) 16 9 - 16 mg/dL [facility] Creatinine, Serum 0.73 0.5 - 1.4 mg/dL [facility] Estimated Glomerular Filt Rate >60 [facility] Comment:Chronic Kidney Disea se: Estimated GFR < 60 mL/min/1.37x2Hvpbrv Kidney Disease: Estimated GFR < 15 mL/min/1.73m2 Glucose 95 60 - 115 mg/dL [facility] Calcium 8.4 8.4 - 10.2 mg/dL [facility] Blood Venous blood specimen / Unknown 10/24/2024 1:54 PM EST 10/24/2024 1:54 PM EST us Patricia Sun DO LAB BLOOD ORDERABLES Final R esult [facility] [address] [place] [phone] * Chlamydia/N. Gonorrhoeae RNA, TMA, Urogenitial (10/24/2024 1:21 PM EST) CT PCR NOT DETECTED Not Detect. [facility] Comment:A not detected test result does not exclude the possibilityof infection because test results can be affected byimproper specimen collection, concurrent antibiotic therapy,or the number of organisms in the specimen which may bebelow the sensitivity of the test. As with many diagnostictests, results from the Xpert CT/NG assay should beinterpreted in conjunction with other laboratory andclinical data available to the clinician.Xpert CT/NG performance has not been evaluated in patientsless than 14 years of age. The assay should not be used forthe evaluationof suspected sexual abuse or for other medico-legalindications. Additional testing is recommended in anycircumstance when false positive or false negative resultscould lead to adverse medical, social or psychologicalconsequences. NG PCR NOT DETECTED Not Detect. [facility] Comment:A not detected test result does not exclude the possibilityof infection because test results can be affected byimproper specimen collection, concurrent antibiotic therapy,or the number of organisms in the specimen which may bebelow the sensitivity of the test. As with many diagnostictests, results from the Xpert CT/NG assay should beinterpreted in conjunction with other laboratory andclinical data available to the clinician.Xpert CT/NG performance has not been evaluated in patientsless than 14 years of age. The assay should not be used forthe evaluationof suspected sexual abuse or for other medico-legalindications. Additional testing is recommended in anycircumstance when false positive or false negative resultscould lead to adverse medical, social or psychologicalconsequences. Urine Urethral structure / Unknown 10/24/2024 1:21 PM EST 10/24/2024 2:15 PM EST Narrative [facility] - 10/24/2024 3:48 PM EST Urine us Patricia Sun DO LAB MICROBIOLOGY - GENERAL O RDERABLES Final Result [facility] [address] [place] [address] [phone] from Last 3 Months Insurance [employer] C3 Care Teams Service Order Dispatcher Chief Relationship Specialty Start Date End Date Patricia Sun DO [address] [place] [address] PCP - General Family Medicine 10/10/24
--- OUTSIDE RECORDS SUMMARY | 2024-12-18 13:28 | XMS_ITS | Encounter Summary ---
Author Organization [employer] Address [address] [place] [address] Care Team Providers Care Tack Picker Name Role Phone GiselaPatricia perkins Primary Care Provider + [phone] Encounter Details Date Type Department Care Team (Late st Contact Info) Description 11/25/2024 Telephone [facility] OPTOMETRY [address] [place] [address] Ihsan, Aura, OD [address] [place] [address] Social History Tobacco Use Types Packs/Day Years [...] AM EST documented as of this encounter Miscellaneous Notes * Telephone Encounter - Luci Burch - 11/25/2024 2:08 PM EST LVM waiting on pt to called back to book urgent ref appt in any 3:30 available per christos documented in this encounter Plan of Treatment Upcoming Encounters Date Type Department Care Team (Late st Contact Info) Description 03/17/2025 3:30 PM EDT Office Visit [facility] OPTOMETRY [address] [place] [address] Ihsan, Aura, OD [address] [place] [address] documented as of this encounter Visit Diagnoses Not on filedocumented in this encounter Additional Health Concerns Assessment Noted Time PHQ-9 Depression Total Score: 5 10/10/20 11:44 AM EST documented as of this encounter Care Teams Tack Picker Relationship Specialty Start Date End Date Patricia Sun DO [address] [place] [address] PCP - General Family Medicine 10/10/24 documented as of this encounter
--- OUTSIDE RECORDS SUMMARY | 2024-12-18 13:28 | XMS_ITS | Clinical Summary ---
Author Organization [facility] Address [address] [place] [address] Phone Care Team Providers Care Metal Burnisher Name Role Phone Jalen Martinez MD Primary Care Provi michelle Allergies Active Allergy Reactions Criticality Noted Date Comments Ibuprofen 09/04/2024 Medications cyanocobalamin (VITAMIN B-12) 100 mcg tablet Take 1 tablet (100 mcg total) by mouth 1 (one) time each day. Active folic acid (FOLVITE) 1 mg tablet Take 1 tablet (1 mg total) by mouth 1 (one) time each day. Active thiamine 100 mg tablet Take 1 tablet (100 mg total) by mouth 1 (one) time each day. Active traZODone (DESYREL) 50 mg tablet Take 0.5 tablets (25 mg total) by mouth at bedtime. 15 each 10/01/2024 Active cholecalciferol (VITAMIN D-3) 50 mcg (2,000 unit) tablet Take 1 tablet (2,000 Units total) by mouth 1 (one) time each day. 30 tablet 10/02/2024 Active divalproex (DEPAKOTE ER) 250 mg 24 hr tablet Take 1 tablet (250 mg total) by mouth at bedtime. Do not crush, chew, or split. 30 each 10/02/2024 Active divalproex (DEPAKOTE ER) 500 mg 24 hr tablet Take 1 tablet (500 mg total) by mouth 1 (one) time each day in the morning. Do not crush, chew, or split. 30 each 10/02/2024 Active Active Problems Problem Noted Date Diagnosed Date Subarachnoid hemorrhage 09/04/2024 Resolved Problems Problem Noted Date Diagnosed Date Resolved Date A-fib 09/05/2024 09/05/2024 Encounters Date Type Department Care Team Description 12/12/2024 Telephone [facility] Occupational Therapy [address] [place] [phone] Lauri Rivera GODOY/L 12/06/2024 1:15 PM EST Treatment [facility] Occupational [address] [phone] Lauri Rivera GODOY/L Hemiparesis of left nondominant side, unspecified hemiparesis etiology (CMS/HCC) (Primary Dx); SAH (subarachnoid hemorrhage) (CMS/HCC); Subarachnoid hemorrhage (CMS/HCC) 12/06/2024 12:30 PM EST Treatment [address] [phone] Jayjay Childs, MANUELA Subarachnoid hemorrhage (CMS/HCC) (Primary Dx) 12/04/2024 1:15 PM EST Treatment [address] [phone] Jayjay Childs WARDROBE MANAGER SAH (subarachnoid hemorrhage) (CMS/HCC) (Primary Dx) 12/04/2024 12:30 PM EST Treatment [facility] Occupational [address] [phone] Miriam Parks, OTR/L Hemiparesis of left nondominant side, unspecified hemiparesis etiology (CMS/HCC) (Primary Dx); SAH (subarachnoid hemorrhage) (CMS/HCC) 12/02/2024 12:30 PM EST Treatment [facility] Occupational [address] [phone] Erasmo Choudhury, OT SAH (subarachnoid hemorrhage) (CMS/HCC) (Primary Dx) 11/26/2024 1:15 PM EST Treatment [facility] Occupational [address] [phone] Wayner, Breahna, GODOY/L SAH (subarachnoid hemorrhage) ([facility]/HCC) (Primary Dx); Subarachnoid hemorrhage (CMS/HCC) 11/21/2024 2:15 PM EST Treatment [facility] [address] [phone] Mary Olmstead, PT SAH (subarachnoid hemorrhage) ([facility]/HCC) (Primary Dx) 11/21/2024 1:00 PM EST Treatment [facility] Occupational Therapy [address] [phone] Consuelo Ro, GODOY SAH (subarachnoid hemorrhage) ([facility]) (Primary Dx) 11/14/2024 1:45 PM EST Treatment [facility] Occupational Therapy [address] [place] [address] [phone] Consuelo Ro GODOY 11/14/2024 1:00 PM EST Treatment [address] [phone] Adrian Hoyt, PT Subarachnoid hemorrhage ([facility]) (Primary Dx) 11/12/2024 Patient Outreach [address] [phone] Rosy Valero LCSW 11/11/2024 2:45 PM EST Treatment [facility] Occupational [address] [phone] Erasmo Choudhury, OT SAH (subarachnoid hemorrhage) ([facility]) (Primary Dx) 11/06/2024 2:30 PM EST Evaluation [address] [phone] Bea Rebolalr, PT SAH (subarachnoid hemorrhage) ([facility]) (Primary Dx); Subarachnoid hemorrhage ([facility]) 11/06/2024 1:15 PM EST Treatment [facility] Occupational [address] [phone] Lauri Rivera, GODOY/L 11/04/2024 12:30 PM EST Evaluation [facility] Occupational Therapy [address] [place] [phone] Erasmo Choudhury OT SAH (subarachnoid hemorrhage) ([facility]); Subarachnoid hemorrhage ([facility]) 11/04/2024 Plan of Care Documentation [facility] Occupational Therapy [address] [phone] 09/30/2024 Plan of Care Documentation [facility] Inpatient Rehab [address] [place] [phone] 09/23/2024 Plan of Care Documentation [facility] [address] [place] [phone] 09/04/2024 3:40 PM EST - 10/02/2024 11:00 AM EST Hospital Encounter [facility] [address] [place] [phone] Dayana James DO SAH (subarachnoid hemorrhage) (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) A-fib ([facility]) 09/05/2024 Social History Tobacco Use Types Packs/Day Years Used Date Smoking Tobacco: Former Cigarettes Q uit: 2011 Tobacco Cessation:Counseling Given: Not Answered Alcohol Use Standard Drinks/Week Comments Yes 3 [...] Orientation Straight 12/13/2024 11 :15 AM EST Obstetrics History Last Filed Vital Signs Vital Sign Reading Time Taken Comments Blood Pressure 95/63 10/02/2024 9:00 AM EST Pulse 74 10/02/2024 9:00 AM EST Temperature 36.4 ??C (97.5 ??F) 10/02/2024 9:00 AM ES T Respiratory Rate 16 10/02/2024 9:00 AM EST Oxygen Saturation 98% 10/02/2024 9:00 AM EST Inhaled Oxygen Concentration - - Weight 50.8 kg (112 lb) 09/21/2024 2:10 PM EST Height 149 cm (4' 10.66 ) 09/05/2024 9:30 AM EST Body Mass Index 22.88 09/05/2024 9:30 AM EST Plan of Treatment Upcoming Encounters Date Type Department Care Team (Late st Contact Info) Description 12/19/2024 1:00 PM EST Treatment [facility] Therapy [address] [phone] Lauri Rivera COTA/Teena 12/19/2024 1:45 PM EST Treatment [facility] [address] [phone] Jayjay Childs, MANUELA 12/24/2024 12:30 PM EST Treatment [facility] Therapy [address] [phone] Lauri Rivera COTA/Teena 12/26/2024 11:15 AM EST Treatment [facility] [address] [phone] Erasmo Choudhury OT 12/26/2024 12:00 PM EST Treatment [facility] [address] [phone] Jayjay Childs, WARDROBE MANAGER 01/01/2025 1:00 PM EST Treatment [facility] [address] [phone] ThelmaBea lazo, PT 01/01/2025 1:45 PM EST Treatment [facility] [address] [phone] Jayjay Childs, WARDROBE MANAGER 01/03/2025 11:15 AM EST Treatment [facility] [address] [phone] Jayjay Childs, WARDROBE MANAGER 01/08/2025 1:15 PM EDT Treatment [facility] Therapy [address] [phone] Lauri Rivera COTA/Teena 01/08/2025 2:00 PM EDT Treatment [facility] [address] [phone] ThelmaBea lazo, PT 01/10/2025 12:30 PM EDT Treatment [facility] Therapy [address] [phone] Lauri Rivera GODOY/Teena 01/13/2025 12:30 PM EDT Treatment [facility] [address] [phone] Erasmo Choudhury, JENNIFER Health Maintenance Due Date Last Done Comments Breast Cancer Screening 1975 Hepatitis B Vaccines (1 of 3 - 19+ 3-dose series) 1993 Cervical Cancer Screening: P ap Smear 1995 DTaP,Tdap,and Td Vaccines (2 - Td or Tdap) 03/22/2022 03/22/2012 COVID-19 Vaccine (1 - 2023-2 5 season) 2024 Influenza Vaccine (#1) 2024 Colorectal Cancer Screening: Colonoscopy 09/03/2024 Pneumococcal Vaccine: 50+ Ye ars (1 of 1 - PCV) 2024 Zoster Vaccines (1 of 2) 2024 Social Influencers of Health Screening 10/01/2025 10/01/2024 Depression Screening 10/10/2025 10/10/2024 Cholesterol Screening (Lipid Panel) 10/24/2029 10/24/2024 HIV Screening Completed 10/24/2024 Hepatitis C Screening [...] on patient's age to complete this topic MMR Vaccines Aged Out No longer eligi ble based on patient's age to complete this topic Meningococcal ACWY Vaccine Aged Out N o longer eligible based on patient's age to complete this topic Meningococcal B Vacine Aged Out No lo nger eligible based on patient's age to complete this topic Pneumococcal Vaccine: Pediat rics (0 to 5 Years) and At-Risk Patients (6 to 64 Years) Aged Out No longer eligi ble based on patient's age to complete this topic RSV Immunization Patients Un michelle 20 months Aged Out No longer eligible b ased on patient's age to complete this topic Varicella Vaccines Aged Out No longer eligible based on patient's age to complete this topic Goals Goal Patient Goal Type Associated Problems [...] - Not met Patient will demo L hand stone polisher strength >= 19 to be able to [...] WFL for IADLs, Patient will demo L hand stone polisher strength >= 24# to be able to [...] with dual task activities for completion of hand laminator and responsibilities 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 Pt will improve L hip flexion, extension and abduction to >/= 4/5 for strength and stability Pt will be independent with HEP for maintenance of gains made in skilled physical therapy Procedures Procedure Name Priority Date/Time Associated Diagnosis Comments VALPROIC ACID LEVEL, TOTAL Timed 10/01/2024 5:47 AM EST COMPLETE BLOOD COUNT Routine 10/01/2024 5:47 AM EST COMPREHENSIVE METABOLIC PANEL Routine 10/01/2024 5:47 AM EST COMPLETE BLOOD COUNT Routine 09/20/2024 5:51 AM EST COMPREHENSIVE METABOLIC PANEL Routine 09/20/2024 5:51 AM EST from Last 3 Months Results * Complete blood count (10/01/2024 5:47 AM EST) Only the most recent of2 resultswithin the time period is included. WBC 6.6 4.8 - 10.8 K/mcL LAB HEMETOLOGY METHOD 10/01/2024 6:41 AM [facility] RBC 4.30 3.80 - 4.80 M/mcL LAB HEMETOLOGY METHOD 10/01/2024 6:41 AM [facility] Hemoglobin 13.5 11.5 - 16.0 g/dL LAB HEMETOLOGY METHOD 10/01/2024 6:41 AM [facility] Hematocrit 41.5 35.0 - 47.0 % LAB HEMETOLOGY METHOD 10/01/2024 6:41 AM [facility] MCV 96.5 79.0 - 98.0 FL LAB HEMETOLOGY METHOD 10/01/2024 6:41 AM [facility] MCH 31.4 27.0 - 32.0 pcg LAB HEMETOLOGY METHOD 10/01/2024 6:41 AM [facility] MCHC 32.5 32.0 - 37.0 g/dL LAB HEMETOLOGY METHOD 10/01/2024 6:41 AM [facility] RDW 13.2 11.0 - 15.0 % LAB HEMETOLOGY METHOD 10/01/2024 6:41 AM [facility] Platelets 131 130 - 400 K/mcL LAB HEMETOLOGY METHOD 10/01/2024 6:[address] [facility] MPV 9.3 7.0 - 11.0 FL LAB HEMETOLOGY METHOD 10/01/2024 6:[address] [facility] NRBC 0.0 <1.0 % LAB HEMETOLOGY METHOD 10/01/2024 6:[address] [facility] NRBC Absolute 0.00 <0.10 K/[facility] LAB HEMETOLOGY METHOD 10/01/2024 6:[address] [facility] Blood Venous blood specimen / Unknown Venipuncture / Unknown 10/01/2024 5:47 AM EST 10/01/2024 6:26 AM EST Sophie EUBANKS LAB BLOOD ORDERABLES Final R esult Performing Organization Address City/[facility]/ZIP Co de Phone Number [facility] [address] [place] [address], [place] [phone] * (ABNORMAL) Valproic acid level, total (10/01/2024 5:47 AM EST) [facility] Valproic Acid, Total 101(H) 50 - 100 mcg/mL LAB CHEMISTRY METHOD 10/01/2024 7:[address] [facility] Blood Venous blood specimen / Unknown Venipuncture / Unknown 10/01/2024 5:47 AM EST 10/01/2024 6:27 AM EST Sophie EUBANKS LAB BLOOD ORDERABLES Final R esult [facility] [address] [place] [address], [place] [phone] * (ABNORMAL) Comprehensive metabolic panel (10/01/2024 5:47 AM EST) Only the most recent of2 resultswithin the time period is included. [facility] Sodium 140 133 - 145 mmol/L LAB CHEMISTRY METHOD 10/01/2024 7:12 AM [facility] Potassium 3.9 3.5 - 5.5 mmol/L LAB CHEMISTRY METHOD 10/01/2024 7:12 AM [facility] Chloride 104 96 - 110 mmol/L LAB CHEMISTRY METHOD 10/01/2024 7:12 AM [facility] CO2 29 21 - 32 mmol/L LAB CHEMISTRY METHOD 10/01/2024 7:12 AM [facility] Anion Gap 7 3 - 11 LAB CHEMISTRY METHOD 10/01/2024 7:12 AM [facility] Glucose 85 70 - 100 mg/dL LAB CHEMISTRY METHOD 10/01/2024 7:12 AM [facility] BUN 23 5 - 25 mg/dL LAB CHEMISTRY METHOD 10/01/2024 7:12 AM [facility] Creatinine 1.10 0.50 - 1.10 mg/dL LAB CHEMISTRY METHOD 10/01/2024 7:12 AM [facility] eGFR 62 >=60 mL/min/1. 73m2 LAB CHEMISTRY METHOD 10/01/2024 7:12 AM [facility] Comment:Calculation based on the??Chronic Kidney Disease Epidemiology Collaboration (CKD-EPI) equation refit??without adjustment for race. BUN/Creatinine Ratio 20.9 LAB CHEMISTRY METHOD 10/01/2024 7:12 AM [facility] Calcium 8.2(L) 8.5 - 10.5 mg/dL LAB CHEMISTRY METHOD 10/01/2024 7:12 AM [facility] AST (SGOT) 13 10 - 42 unit/L LAB CHEMISTRY METHOD 10/01/2024 7:12 AM [facility] ALT (SGPT) 15 10 - 60 unit/L LAB CHEMISTRY METHOD 10/01/2024 7:12 AM [facility] Alkaline Phosphatase 54 42 - 121 unit/L LAB CHEMISTRY METHOD 10/01/2024 7:[address] [facility] Total Protein 5.4(L) 6.0 - 8.0 g/dL LAB CHEMISTRY METHOD 10/01/2024 7:[address] [facility] Albumin 2.7(L) 3.2 - 5.0 g/dL LAB CHEMISTRY METHOD 10/01/2024 7:[address] [facility] Total Bilirubin 0.2 0.0 - 1.4 mg/dL LAB CHEMISTRY METHOD 10/01/2024 7:[address] [facility] Blood Venous blood specimen / Unknown Venipuncture / Unknown 10/01/2024 5:47 AM EST 10/01/2024 6:27 AM EST us Sophie EUBANKS LAB BLOOD ORDERABLES Final R esult [facility] [address] [place] [address], [place] [phone] from Last 3 Months Insurance MEDICAID - [place] Advance Directives Documents on File Type Date Recorded 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 Do not modify or discontinue any currently active code status orders. Care Teams Metal Burnisher Relationship Specialty Start Date End Date Jalen Martinez MD [address] [place] [id number] PCP - General Internal Medicine 10/01/24
--- OUTSIDE RECORDS SUMMARY | 2024-12-18 13:28 | XMS_ITS | Encounter Summary ---
Author Organization [facility] Address [address] [place] [address] Care Team Providers Care Lithopone Mill Worker Name Role Phone Jalen Martinez MD Primary Care [facility] Reason for Visit * Consultation (Routine) - Authorized Specialty Diagnoses / Procedures Referred By Contdakota t Referred To Contact Physical Therapy Diagnoses SAH (subarachnoid hemorrhage) (CMS/HCC) Subarachnoid hemorrhage (CMS/HCC) Dayana James, [place] [place] [address] Phone: tel: fax: [address] [phone] Phone: tel: fax: Referral ID Status Reason Start Date Expiration Date Visits Requested Visits Authorized [id number] Authorized Specialty Services Required 09/11/2025 20 12 Encounter Details Date Type Department Care Team (Latest Contact Info) Description 12/06/2024 12:30 PM EST Treatment [address] [phone] Jayjay Childs PTA Subarachnoid hemorrhage (CMS/HCC) (Primary Dx) Social History Tobacco Use [...] as of this encounter Progress Notes * Jayjay Childs PTA - 12/06/2024 12:30 PM EST [facility] - Outpatient PHYSICAL THERAPY DAILY TREATMENT NOTE - OP Date: 12/06/2024 Visit Number: [id number] Patient Name: Jessica Arana : 1975 Age: 48 y.o. Gender: female Diagnosis: ICD-10-CM ICD-9-CM 1. Subarachnoid hemorrhage ([facility]) I60.9 430 Date of Onset/Surgery: 11/06/2024 Referring Provider: Dayana James DO Insurance: Pay[place] / Plan[place] / Product Type: *No Product type* / Patient Identified by: Jayjay Childs PTA Language: Speaks and understands Kyrgyz as preferred language with no swing tender required Medications: Current Outpatient Medications on File Prior [...] visit. Allergies: is allergic to ibuprofen. Precautions: none Fall risk: No SUBJECTIVE Subjective Report: Patient expressing frustration over being late due to had difficulty leaving work to come get her. Chart Reviewed: Yes Pain: pain L groin area during sit to stand transfers TREATMENT INTERVENTION: NuStep X 5min LE only Calf Stretching on Slant board 3 x 20 sec hold Side stepping 4 laps length of // bars with [place] Tband around ankles Heel walking 4laps Toe walking 4 laps forwards and backwards Standing air ex cushion unsupported UE flexion with small ball x 1 min Balancing unsupported on air ex cushion EC static standing x 1 min Standing peturbations balancing on air ex cushion Chair squat 2 x 10 reps ASSESSMENT/Response to Treatment Good Patient 18 mins late for PT visit. No complaints reported during PT visit. Patient Education: Education provided: yes Education Provided To: Patient utilizing Explanation mode(s) of education Response to Education: Applied Knowledge and Verbal Understanding PLAN POC Development/Review: No Change in the Plan of Care; Participants: Patient Interventions Time Entry: Modalities: Therapeutic procedures: Therapeutic Exercise Time Entry: 28 Total Treatment Time: 28 mins Documentation completed by Jayjay Childs PTA documented in this encounter Plan of Treatment Upcoming Encounters Date Type Department Care Team (Late st Contact Info) Description 12/19/2024 1:00 PM EST Treatment [facility] Occupational Therapy [address] [place] [phone] Lauri Rivera COTA/L 12/19/2024 1:45 PM EST Treatment [facility] [address] [phone] Jayjay Childs, DATA WAREHOUSE CONSULTANT 12/24/2024 12:30 PM EST [facility] [address] [phone] Lauri Rivera, GODOY/L 12/26/2024 11:15 AM EST Treatment [facility] [address] [phone] Erasmo Choudhury, OT 12/26/2024 12:00 PM EST Treatment [facility] [address] [phone] Jayjay Childs, DATA WAREHOUSE CONSULTANT 01/01/2025 1:00 PM EST Treatment [facility] [address] [phone] Bea Rebollar, PT 01/01/2025 1:45 PM EST Treatment [facility] [address] [phone] Jayjay Childs, DATA WAREHOUSE CONSULTANT 01/03/2025 11:15 AM EST Treatment [facility] [address] [phone] Jayjay Childs, DATA WAREHOUSE CONSULTANT 01/08/2025 1:15 PM EDT Treatment [facility] Occupational Therapy [address] [phone] Lauri Rivera, GODOY/L 01/08/2025 2:00 PM EDT Treatment [facility] [address] [phone] Bea Rebollar, PT 01/10/2025 12:30 PM EDT Treatment [facility] Occup[facility] Therapy [address] [phone] Lauri Rivera, GODOY/L 01/13/2025 12:30 PM EDT Treatment [facility] Therapy [address] [phone] Erasmo Choudhury, OT documented as [...] - Not met Patient will demo L backhoe operator strength >= 19 to be able to [...] WFL for IADLs, Patient will demo L backhoe operator strength >= 24# to be able to [...] with dual task activities 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 Pt will improve L hip flexion, extension and abduction to >/= 4/5 for strength and stability Pt will be independent with HEP for maintenance of gains made in skilled physical therapy documented as of this encounter Visit Diagnoses Diagnosis Subarachnoid hemorrhage (CMS/[facility])- Primary Subarachnoid hemorrhage documented in this encounter Additional Health Concerns Assessment Noted Time PHQ-9 Depression Total Score: 0 10/01/20 24 5:02 PM EST documented as of this encounter Care Teams Lithopone Mill Worker Relationship Specialty Start Date End Date Jalen Martinez MD [address] [place] [address] PCP - General Internal Medicine 10/01/24 documented as of this encounter
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
--- OUTSIDE RECORDS SUMMARY | 2024-12-18 13:28 | XMS_ITS | Encounter Summary ---
Author Organization [employer] Address [address] [place] [address] Care Team Providers Care Sausage Wrapper Name Role Phone Patricia Sun Primary Care Provider + [phone] Encounter Details Date Type Department Care Team (Latest Contact Info) Description 11/29/2024 Travel Social History Tobacco Use Types Packs/Day [...] Description 03/17/2025 3:30 PM EDT Office Visit [facility] OPTOMETRY [address] [place] [address] Aura Champagne, OD [address] [place] [address] documented as of this encounter Visit Diagnoses Not on filedocumented in this encounter Additional Health Concerns Assessment Noted Time PHQ-9 Depression Total Score: 5 10/10/20 24 11:44 AM EST documented as of this encounter Care Teams Sausage Wrapper Relationship Specialty Start Date End Date Patricia Sun DO [address] [place] [address] PCP - General Family Medicine 10/10/24 documented as of this encounter
--- OUTSIDE RECORDS SUMMARY | 2024-12-18 13:29 | XMS_ITS | Encounter Summary ---
Author Organization [facility] Address [address] [place] [address] Care Team Providers Care Car Varnisher Name Role Phone Jalen Martinez MD Primary Care [facility] Reason for Visit * Consultation (Routine) - Authorized Specialty Diagnoses / Procedures Referred By Contdakota t Referred To Contact Occupational Therapy Diagnoses SAH (subarachnoid hemorrhage) (CMS/HCC) Subarachnoid hemorrhage (CMS/HCC) Dayana James, [place] [address] Phone: tel: fax: [facility] Occupational Therapy [address] [address] Phone: tel: fax: Referral ID Status Reason Start Date Expiration Date Visits Requested Visits Authorized [id number] Authorized Specialty Services Required 09/11/2025 20 16 Encounter Details Date Type Department Care Team (Late st Contact Info) Description 12/06/2024 1:15 PM EST Treatment [facility] Occup[facility] Therapy [address] [phone] Lauri Rivera COTA/Teena Hemiparesis of left nondominant side, unspecified hemiparesis etiology (CMS/HCC) (Primary Dx); SAH (subarachnoid hemorrhage) (CMS/HCC); Subarachnoid hemorrhage (CMS/HCC) Social History Tobacco Use Types Packs/Day Years [...] as of this encounter Progress Notes * OTTO Elizabeth 12/06/2024 1:15 PM EST [facility] - Outpatient OCCUPATIONAL THERAPY DAILY TREATMENT NOTE Date: 12/06/2024 Visit Number: [id number] Patient Name: Jessica Arana : 1975 Age: 48 y.o. Gender: female Diagnosis: ICD-10-CM ICD-9-CM 1. Hemiparesis of left nondominant side, unspecified hemiparesis etiology ([facility]) G81.94 342.92 2. SAH (subarachnoid hemorrhage) ([facility]) I60.9 430 3. Subarachnoid hemorrhage ([facility]) I60.9 430 Date of Onset: 09/11/2024 Referring Provider: Dayana James DO Insurance: Pay[place] / Plan[place] / Product Type: *No Product type* / Medications: Current Outpatient Medications on File Prior [...] visit. Allergies: is allergic to ibuprofen. Precautions: None specified SUBJECTIVE Subjective Report: my boys help push me so much Chart Reviewed: Yes Pain: 0 TREATMENT INTERVENTION Procedures: Theract- removing all small bolts and replacing them. -fine motor of stacking coins and placing in bank while holding 5 in hand at a time for increased dexterity. - fine motor of doing small puzzle Therex- UBE 3 minutes in each direction on level 2 for increased strength/coordination/endurance Pain Reassessment: 5 when using arm Assessment/Response To Treatment: Good Patient demonstrating some improvement in fine motor demonstrated by quicker fine motor tasks. Patient Education: Education provided: Yes Education Provided To: Patient utilizing Explanation mode(s) of education Response to Education: Good PLAN POC Development/Review: No Change in the Plan of Care; Participants: Patient Equipment Recommended: none; Equipment Provided: none Total Treatment Time: 45 TOTAL TREATMENT TIME: 45 Minutes Documentation completed by OTTO Elizabeth documented in this encounter Plan of Treatment Upcoming Encounters Date Type Department Care Team (Late st Contact Info) Description 12/19/2024 1:00 PM EST Treatment [facility] Occupational Therapy [address] [place] [phone] Lauri Rivera COTA/L 12/19/2024 1:45 PM EST Treatment [facility] [address] [address] Jayjay Childs, PEDICAB DRIVER 12/24/2024 12:30 PM EST Treatment [facility] [address] [phone] Lauri Rivera, GODOY/L 12/26/2024 11:15 AM EST Treatment [facility] [address] [phone] Erasmo Choudhury, OT 12/26/2024 12:00 PM EST Treatment [facility] [address] [phone] Jayjay Childs, PEDICAB DRIVER 01/01/2025 1:00 PM EST Treatment [facility] [address] [phone] Bea Rebollar, PT 01/01/2025 1:45 PM EST Treatment [facility] [address] [phone] Jayjay Childs, PEDICAB DRIVER 01/03/2025 11:15 AM EST Treatment [facility] [address] [phone] Jayjay Childs, PEDICAB DRIVER 01/08/2025 1:15 PM EDT Treatment [facility] Occupational Therapy [address] [phone] Lauri Rivera, GODOY/L 01/08/2025 2:00 PM EDT Treatment [facility] [address] [phone] Bea Rebollar, PT 01/10/2025 12:30 PM EDT Treatment [facility] Occupational Therapy [address] [phone] Lauri Rivera, GODOY/L 01/13/2025 12:30 PM EDT Treatment [facility] [address] [place] [address] Erasmo Choudhury, OT documented as [...] - Not met Patient will demo L oil drilling engineer strength >= 19 to be able to [...] WFL for IADLs, Patient will demo L oil drilling engineer strength >= 24# to be able to [...] with dual task activities for completion of score caller and responsibilities 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 Pt will improve L hip flexion, extension and abduction to >/= 4/5 for strength and stability Pt will be independent with HEP for maintenance of gains made in skilled physical therapy documented as of this encounter Visit Diagnoses Diagnosis Hemiparesis of left nondominant side, unspecified hemiparesis etiology (CMS/HCC)- Primary SAH (subarachnoid hemorrhage) (CMS/HCC) Subarachnoid hemorrhage Subarachnoid hemorrhage (CMS/HCC) Subarachnoid hemorrhage documented in this encounter Additional Health Concerns Assessment Noted Time PHQ-9 Depression Total Score: 0 10/01/20 24 5:02 PM EST documented as of this encounter Care Teams Car Varnisher Relationship Specialty Start Date End Date Jalen Martinez MD [address] [place] [address] PCP - General Internal Medicine 10/01/24 documented as of this encounter
--- OUTSIDE RECORDS SUMMARY | 2024-12-18 13:29 | XMS_ITS | Encounter Summary ---
Author Organization [facility] Address [address] [place] [address] Care Team Providers Care Sample Driller Name Role Phone Jalen Martinez MD Primary Care [facility] Reason for Visit * Consultation (Routine) - Authorized Specialty Diagnoses / Procedures Referred By Contdakota t Referred To Contact Occupational Therapy Diagnoses SAH (subarachnoid hemorrhage) (CMS/HCC) Subarachnoid hemorrhage (CMS/HCC) Dayana James DO [address] [place] [address] Phone: tel: fax: [facility] Occupational Therapy [address] [address] Phone: tel: fax: Referral ID Status Reason Start Date Expiration Date Visits Requested Visits Authorized [id number] Authorized Specialty Services Required 4 09/11/2025 20 16 Encounter Details Date Type Department Care Team (Late st Contact Info) Description 11/26/2024 1:15 PM EST Treatment [facility] Occup[facility] [address] [phone] Lauri Rivera COTA/Teena SAH (subarachnoid hemorrhage) (CMS/HCC) (Primary Dx); Subarachnoid hemorrhage (CMS/HCC) Social History Tobacco Use [...] this encounter Progress Notes * OTTO Elizabeth 11/26/2024 1:15 PM EST [facility] - Outpatient OCCUPATIONAL THERAPY DAILY TREATMENT NOTE Date: 11/26/2024 Visit Number: 6 Patient Name: Jessica Arana : 1975 Age: 48 y.o. Gender: female Diagnosis: ICD-10-CM ICD-9-CM 1. SAH (subarachnoid hemorrhage) (CMS/HCC) I60.9 430 2. Subarachnoid hemorrhage (CMS/HCC) I60.9 430 Date of Onset: 09/11/2024 Referring Provider: Dayana James DO Insurance: Payor[place] / Plan[place] / Product Type: *No Product type* / [...] Precautions: None specified SUBJECTIVE Subjective Report: my shoulder is still sore Chart Reviewed: Yes Pain: Just tight- no number given TREATMENT INTERVENTION Procedures: Therex- MHP applied while patient performed ROM with UE ranger Theract- patient participated in various fine motor tasks for increased dexterity and in hand manipulation. Assessment/Response To Treatment: Good Patient doing well with activities however would like to see more progress. Support and encouragement given. Patient Education: Education provided: Yes Education Provided [...] Info) Description 12/19/2024 1:00 PM EST Treatment [facility] Occupational Therapy [address] [place] [phone] Lauri Rivera COTA/L 12/19/2024 1:45 PM EST Treatment [facility] [address] [phone] Jayjay Childs PTA 12/24/2024 12:30 PM EST Treatment [facility] Occupational Therapy [address] [place] [phone] Lauri Rivera COTA/L 12/26/2024 11:15 AM EST Treatment [facility] Occupational Therapy [address] [phone] Erasmo Choudhury, OT 12/26/2024 12:00 PM EST Treatment [facility] [address] [phone] Jayjay Childs, STONEMASON 01/01/2025 1:00 PM EST Treatment [facility] [address] [phone] Bea Rebollar, PT 01/01/2025 1:45 PM EST Treatment [facility] [address] [phone] Jayjay Childs, STONEMASON 01/03/2025 11:15 AM EST Treatment [facility] [address] [phone] Jayjay Childs, STONEMASON 01/08/2025 1:15 PM EDT Treatment [facility]ational [facility] [address] [phone] Lauri Rivera, GODOY/L 01/08/2025 2:00 PM EDT Treatment [facility] [address] [phone] Bea Rebollar, PT 01/10/2025 12:30 PM EDT Treatment [facility] Occup[facility] Therapy [address] [phone] Lauri Rivera, GODOY/L 01/13/2025 12:30 PM EDT Treatment [facility] Occup[facility] Therapy [address] [phone] Erasmo Choudhury, OT documented as of this [...] - Not met Patient will demo L geotechnical engineer strength >= 19 to be able [...] WFL for IADLs, Patient will demo L geotechnical engineer strength >= 24# to be able [...] with dual task activities for completion of associate attorney and responsibilities 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 Pt will improve L hip flexion, extension and abduction to >/= 4/5 for strength and stability Pt will be independent with HEP for maintenance of gains made in skilled physical therapy documented as of this encounter Visit Diagnoses Diagnosis SAH (subarachnoid hemorrhage) (CMS/HCC)- Primary Subarachnoid hemorrhage Subarachnoid hemorrhage (CMS/HCC) Subarachnoid hemorrhage documented in this encounter Additional Health Concerns Assessment Noted Time PHQ-9 Depression Total Score: 0 10/01/20 24 5:02 PM EST documented as of this encounter Care Teams Sample Driller Relationship Specialty Start Date End Date Jalen Martinez MD [address] [place] [address] PCP - General Internal Medicine 10/01/24 documented as of this encounter
--- OUTSIDE RECORDS SUMMARY | 2024-12-18 13:29 | XMS_ITS | Encounter Summary ---
Author Organization [facility] Address [address] [place] [address] Care Team Providers Care Field Project Manager Name Role Phone Jalen Martinez MD Primary Care [facility] Reason for Visit * Consultation (Routine) - Authorized Specialty Diagnoses / Procedures Referred By Contdakota t Referred To Contact Occupational Therapy Diagnoses SAH (subarachnoid hemorrhage) (CMS/HCC) Subarachnoid hemorrhage ([facility]/HCC) Dayana James, [place] [address] Phone: tel: fax: [facility] Occupational Therapy [address] [address] Phone: tel: fax: Referral ID Status Reason Start Date Expiration Date Visits Requested Visits Authorized [id number] Authorized Specialty Services Required 4 09/11/2025 20 16 Encounter Details Date Type Department Care Team (Late st Contact Info) Description 12/02/2024 12:30 PM EST Treatment [facility] [address] [phone] Erasmo Choudhury, JENNIFER SAH (subarachnoid hemorrhage) ([facility]/HCC) (Primary Dx) Social History Tobacco Use [...] as of this encounter Progress Notes * Erasmo Choudhury, OT - 12/02/2024 12:30 PM EST Images from the original note were not included. [facility] - Outpatient OCCUPATIONAL THERAPY Progress Summary Date: 12/02/2024 Visit Number: 7 Patient Name: Jessica Arana : 1975 Age: 48 y.o. Gender: female Diagnosis: No diagnosis found. Date of Onset: 09/11/2024 Referring Provider: Dayana James DO Insurance: [place] / [place] / Product Type: *No Product type* / Language: Speaks and understands Khmer as preferred language with no contact center professional required Medications: Current Outpatient Medications on File [...] Allergies: is allergic to ibuprofen. 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 14 pounds Pinch R lateral pinch NT L lateral pinch 9 R 3 jaw abelino pinch NT L 3 jaw abelino pinch 5.5 R tip pinch NT L tip pinch 4 OT Shoulder ROM: Right Left AROM PROM SHOULDER AROM PROM WNL WNL Flexion 123 130 WNL WNL Extension 40 40 WNL WNL Abduction 80 105 WNL WNL Internal Rotation WFL WFL WNL WNL External Rotation 30 60 OT Elbow/forearm ROM Right Left AROM PROM ELBOW/ FOREARM AROM PROM WNL WNL Extension WNL WNL WNL WNL Flexion WNL WNL WNL WNL Pronation WNL WNL WNL WNL Supination WNL WNL OT Wrist ROM Right Left AROM PROM WRIST AROM PROM WNL WNL Extension WNL WNL WNL WNL Flexion 50 60 WNL WNL Ulnar Deviation WNL WNL WNL WNL Radial Deviation WNL WNL OT Digit ROM WFL Strength RIGHT LEFT COMMENTS SHOULDER Flexion 5/5: Normal 3-/5: Fair Minus Extension 5/5: Normal 4/5: Good Abduction 5/5: Normal 3-/5: Fair Minus External Rotation 5/5: Normal 3-/5: Fair Minus Internal Rotation Not Tested Not Tested ELBOW/ FOREARM Extension 5/5: Normal 5/5: Normal Flexion 5/5: Normal 5/5: Normal Pronation 5/5: Normal 5/5: Normal Supination 5/5: Normal 4-/5: Good Minus WRIST Extension 5/5: Normal 4/5: Good Flexion 5/5: Normal 3-/5: Fair Minus 5/5: Normal - Full ROM and tolerates maximum resistance 4/5: Good - Full ROM and tolerates moderate resistance 4-/5: Good Minus - Full ROM and tolerates less than moderate resistance Breaks with resistance 3+/5: Fair Plus - Full ROM and tolerates minimal resistance Breaks with resistance 3/5: Fair - Full ROM against gravity and tolerates no resistance 3-/5: Fair Minus - < Full ROM against gravity 2+/5: Poor Plus - <50% ROM against gravity OR full ROM gravity eliminated with minimal resistance 2/5: Poor - Full ROM gravity eliminated and tolerates no resistance 2-/5: Poor Minus - < full ROM gravity eliminated 1/5: Trace 0/5: No muscle activation Other Assessments: QuickDASH - Disability of Arm, Shoulder, or Hand Rate your ability to do the following activities in the past week: Open a tight or new jar: 3 - Moderate difficulty Do heavy 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 : 4 - Quite a bit During the past week, were you limited in your work or other regular daily activities as a result of your arm, shoulder or hand problem? : 4 - Very limited Rate the severity of the following symptoms in the last week: Arm, shoulder or hand pain : 3 - Moderate Tingling (pins and needles) in your arm, shoulder or hand : 1 - None During the past week, how much difficulty have you had sleeping because of the pain in your arm, shoulder or hand? : 3 - Moderate difficulty QuickDASH Score QuickDASH Score: 54.55 Classification: Moderate Disability 9 Hole PEG Test 9 Hole Peg Test (seconds) Left - 9 Hole Peg Test (seconds): 53.03 seconds Box and Blocks Dominant Hand Which is your dominant hand?: Right Box and Blocks Test Number of Blocks Transported in 1 Minute by Non- Dominant Hand: 34 TREATMENT INTERVENTION Procedures: Bisi Act: Pt performed grasp release with L hand, various sized pegs/blocks. Pt has difficulty with in hand manipulation. Pt reporting increased tightness and pain throughout L UE. Pt to begin new med as soon as she fills the prescription. There ex: Scap mobs in sidelying. L UE sh flex AROM - educated pt to perform for HEP to increase AROM. Pt reports she is performing sh flex in supine with theraband - educated pt to add AROM in supine to imrpove AROM Pain Reassessment: unchanged Assessment/Response To Treatment: Fair Pt reports she is abl eot hold dishes to wash them better, but other things are more difficult now.Such as, holding pegs in hand while attempting to place into light bright board, dropping items with L hand GOALS Goals Addressed This Visit's Progress LTG 16 visits No change Patient will demo L UE AROM WFL Patient will demo L UE strength WFL for IADLs, Patient will demo L extrusion die template maker strength >= 24# to be able to [...] and Patient will perform HEP MOD I STG 6-8 visits (pt-stated) No change Patient will demo Lsh flex AROM>= 130 to be able to reach the soap in the shower - Not Met Patient will demo L sh abd AROM>= 100 to be able to dress with increased ease - Not met Patient will demo L extrusion die template maker strength >= 19 to be able to [...] Patient will perform initial HEP MOD I Patient Education: Education provided: Yes Education Provided To: Patient utilizing Explanation mode(s) of education Response to Education: Good PLAN POC Development/Review: No Change in the Plan of Care; Participants: Patient Total Treatment Time: 45 Documentation completed by Erasmo Choudhury OT PATIENT NAME: Jessica Arana : 1975 Certification: This is to certify that the above named patient, who is under my care, requires skilled Therapy services as described in the above treatment plan. I further certify that the services outlined in this plan are skilled and medically necessary. I have reviewed this plan for rehabilitation services, and I recommend that these services continue to meet the above stated goals and plan. SIGNATURE: DATE Dayana James DO Referring provider documented in this encounter Plan of Treatment Upcoming Encounters Date Type Department Care Team (Late st Contact Info) Description 12/19/2024 1:00 PM EST Treatment [facility] [address] [place] [phone] Lauri Rivera COTA/Teena 12/19/2024 1:45 PM EST Treatment [facility] Outpatient Rehabilitation - [address] [phone] Jayjay Childs PTA 12/24/2024 12:30 PM EST Treatment [facility] Occupational Therapy [address] [place] [phone] Lauri Rivera COTA/Teena 12/26/2024 11:15 AM EST Treatment [facility] Occupational Therapy [address] [phone] Erasmo Choudhury, OT 12/26/2024 12:00 PM EST Treatment [facility] [address] [phone] Jayjay Childs, CUSTOM TAILOR 01/01/2025 1:00 PM EST Treatment [facility] [address] [phone] Bea Rebollar, PT 01/01/2025 1:45 PM EST Treatment [facility] [address] [phone] Jayjay Childs, CUSTOM TAILOR 01/03/2025 11:15 AM EST Treatment [facility] [address] [phone] Jayjay Childs, CUSTOM TAILOR 01/08/2025 1:15 PM EDT Treatment [facility] Occupational Therapy [address] [phone] Lauri Rivera, GODOY/L 01/08/2025 2:00 PM EDT Treatment [facility] [address] [phone] Bea Rebollar, PT 01/10/2025 12:30 PM EDT Treatment [facility] Occupational Therapy [address] [phone] Lauri Rivera GODOY/L 01/13/2025 12:30 PM EDT Treatment [facility] Occupational Therapy [address] [phone] Erasmo Choudhury, OT documented as of this [...] - Not met Patient will demo L extrusion die template maker strength >= 19 to be able to [...] WFL for IADLs, Patient will demo L extrusion die template maker strength >= 24# to be able to [...] with 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 Pt [...] documented as of this encounter Care Teams Field Project Manager Relationship Specialty Start Date End Date Jalen Martinez MD [address] [place] [address] PCP - General Internal Medicine 10/01/24 documented as of this encounter
--- OUTSIDE RECORDS SUMMARY | 2024-12-18 13:29 | XMS_ITS | Encounter Summary ---
Author Organization [facility] Address [address] [place] [address] Care Team Providers Care Rn X Ray Name Role Phone Jalen Martinez MD Primary Care [facility] Reason for Visit * Consultation (Routine) - Authorized Specialty Diagnoses / Procedures Referred By Contdakota t Referred To Contact Occupational Therapy Diagnoses SAH (subarachnoid hemorrhage) (CMS/HCC) Subarachnoid hemorrhage (CMS/HCC) Dayana James, [place] [address] Phone: tel: fax: [facility] [address] [address] Phone: tel: fax: Referral ID Status Reason Start Date Expiration Date Visits Requested Visits Authorized [id number] Authorized Specialty Services Required 09/11/2025 20 16 Encounter Details Date Type Department Care Team (Late st Contact Info) Description 12/04/2024 12:30 PM EST Treatment [facility] Occupational Therapy [address] [phone] Miriam Parks P, OTR/L Hemiparesis of left nondominant side, unspecified hemiparesis etiology (CMS/HCC) (Primary Dx); SAH (subarachnoid hemorrhage) (CMS/HCC) Social History Tobacco Use Types Packs/Day [...] as of this encounter Progress Notes * KHRIS West/Teena - 12/04/2024 12:30 PM EST [facility] - Outpatient OCCUPATIONAL THERAPY DAILY TREATMENT NOTE Date: 12/04/2024 Visit Number: 8 Patient Name: Jessica Arana : 1975 Age: 48 y.o. Gender: female Diagnosis: ICD-10-CM ICD-9-CM 1. Subarachnoid hemorrhage ([facility]) I60.9 430 2. Hemiparesis of left nondominant side, unspecified hemiparesis etiology ([facility]) G81.94 342.92 Date of Onset: 09/11/2024 Referring Provider: Dayana James DO Insurance: Pay[place] / [place] / Product Type: *No Product type* / Language: Speaks and understands Austrian as preferred language with no job specification writer required Allergies: is allergic to ibuprofen. Precautions: None stated SUBJECTIVE Subjective Report: I went to see my pcp because I am having such a hard time with spams and pain. He put me back on baclofen Pain: Left arm / biceps and FA area; aching It feels like a muscle soreness it only happens when I am lifting my arm OBJECTIVE Small framed female Left hemiparesis / limited functional engagement of left UE Isolated / controlled movements with left UE when attentive to left UE TREATMENT INTERVENTION Procedures: Neuromuscular reeducation Used principles of motor learning ; repetitive/ structured task including reach/ grasp/ place and release: Patient placed very small / thin pegs into pegboard ( 30 ) subsequently removed pegs using a tool (tweezers) increasing difficulty of task Moved light thin plastic discs along same arch Used principled of weight bearing for increased proprioceptive input : push ups against wall Rolling weighted ball along table top Therapeutic exercises UBE x 5 minutes for sustained placing judge and increased UB activity tolerance In supine with 2 lbs dowel 2 x 10 reps ( chest press/ reversed codman routine clockwise and counterclockwise/ serratus punch and flexion in scapular plane) For increased fine motor and in hand manipulation skills picked up and handed out change through thumb and index finger upon command Therapist peformed left UE stretch after performing scap mob. Shoulder flexion stretch in scapular plain Shoulder ER stretch and digit extension stretch Pain Reassessment: Patient reports Pain at end range of SH ER/Scaption Assessment/Response To Treatment: Good I keep working on it Patient Education: Education provided: Yes reiterated importance of repetition Education Provided To: Patient utilizing Explanation mode(s) of education Response to Education: Good PLAN POC Development/Review: No Change in the Plan of Care; Participants: Patient Equipment Recommended: none; Equipment Provided: none GOALS Worked towards increased control of her left UE Total Treatment Time: 45 minutes Documentation completed by KHRIS West/Teena documented in this encounter Plan of Treatment Upcoming Encounters Date Type Department Care Team (Late st Contact Info) Description 12/19/2024 1:00 PM EST Treatment [facility] [address] [phone] Lauri Rivera COTA/L 12/19/2024 1:45 PM EST Treatment [facility] [address] [phone] Jayjay Childs PTA 12/24/2024 12:30 PM EST Treatment [facility] [address] [phone] Lauri Rivera, GODOY/L 12/26/2024 11:15 AM EST Treatment [facility] [address] [phone] Erasmo Choudhury, OT 12/26/2024 12:00 PM EST Treatment [facility] [address] [phone] Jayjay Childs, SENIOR SCIENCE CONSULTANT 01/01/2025 1:00 PM EST Treatment [facility] [address] [phone] Bea Rebollar, PT 01/01/2025 1:45 PM EST Treatment [facility] [address] [phone] Jayjay Childs, SENIOR SCIENCE CONSULTANT 01/03/2025 11:15 AM EST Treatment [facility] [address] [phone] Jayjay Childs, SENIOR SCIENCE CONSULTANT 01/08/2025 1:15 PM EDT Treatment [facility] [address] [phone] Lauri Rivera, GODOY/L 01/08/2025 2:00 PM EDT Treatment [facility] [address] [phone] Bea Rebollar, PT 01/10/2025 12:30 PM EDT Treatment [facility] [address] [phone] Lauri Rivera, GODOY/L 01/13/2025 12:30 PM EDT Treatment [facility] Occup[facility] Therapy [address] [phone] Erasmo Choudhury, OT documented as of this [...] - Not met Patient will demo L placing judge strength >= 19 to be able to [...] WFL for IADLs, Patient will demo L placing judge strength >= 24# to be able to [...] RLE PT LTGs (x12 visits) General Yes eBa Rebollar, PT Note: Improve score on 5xSTS to </= 12 seconds to show increase in functional strength and decreased falls risk Improve score on 6MWT to >/= 1300ft to show improvement in endurance Improve score on FGA to >/= 25 to show improvements in dynamic balance. 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 Pt will improve L hip flexion, extension and abduction to >/= 4/5 for strength and stability Pt will be independent with HEP for maintenance of gains made in skilled physical therapy documented as of this encounter Visit Diagnoses Diagnosis Hemiparesis of left nondominant side, unspecified hemiparesis etiology (CMS/HCC)- Primary SAH (subarachnoid hemorrhage) (CMS/HCC) Subarachnoid hemorrhage documented in this encounter Additional Health Concerns Assessment Noted Time PHQ-9 Depression Total Score: 0 10/01/20 24 5:02 PM EST documented as of this encounter Care Teams Rn X Ray Relationship Specialty Start Date End Date Jalen Martinez MD [address] [place] [address] PCP - General Internal Medicine 10/01/24 documented as of this encounter
--- OUTSIDE RECORDS SUMMARY | 2024-12-18 13:29 | XMS_ITS | Encounter Summary ---
Author Organization [employer] Address [address] [facility] [address] [place] [address] Care Team Providers Care Pharmacoepidemiologist Name Role Phone Patricia Sun DO Primary Care Provider + [phone] Reason for Visit * Reason Onset Date Comments Medication Question 12/02/2024 Encounter Details Date Type Department Care Team ([facility] st Contact Info) Description 12/02/2024 Refill [facility] MED[facility] [address] [place] [address] Patricia Sun DO [address] [place] [address] Social History Tobacco Use Types Packs/Day Years [...] encounter Miscellaneous Notes * Telephone Encounter - Pranav Reeves - 12/02/2024 10:46 AM EST TC from pt requesting medication refill. Medications needing refill : acetaminophen (Tylenol 8 Hour) 650 MG ER tablet tiZANidine (Zanaflex) 2 MG tablet To be sent to: [facility]/pharmacy #[id number] [place] [address] - [address] [place] [address] Pt confirms that [facility] did not receive scripts. documented in this encounter Plan of Treatment Upcoming Encounters Date Type Department Care Team (Late st Contact Info) Description 03/17/2025 3:30 PM EDT Office Visit [facility] OPTOMETRY [address], [place] [phone] Aura Champagne, OD [address] [place] [address] documented as of this encounter Visit Diagnoses Not on filedocumented in this encounter Additional Health Concerns Assessment Noted Time PHQ-9 Depression Total Score: 5 10/10/20 11:44 AM EST documented as of this encounter Care Teams Pharmacoepidemiologist Relationship Specialty Start Date End Date Patricia Sun DO [address] [place] [address] PCP - General Family Medicine 10/10/24 documented as of this encounter
--- OUTSIDE RECORDS SUMMARY | 2024-12-18 13:29 | XMS_ITS | Encounter Summary ---
Author Organization [email or web address] Address [address] [place] [address] Care Team Providers Care Licensed Home Inspector Name Role Phone Patricia Sun Primary Care Provider + [phone] Reason for Visit * Reason Onset Date Comments Confirm Pharmacy 11/29/2024 Encounter Details Date Type Department Care Team ([facility] st Contact Info) Description 11/29/2024 Telephone [facility] MEDICINE [address] [place] [address] Mariama Muhammadra [place] Confirm Pharmacy Social History Tobacco Use Types Packs/Day Years [...] encounter Miscellaneous Notes * Telephone Encounter - Delia Muhammad [place] - 11/29/2024 1:57 PM EST T/c placed to pt to confirm pharmacy they use. Pt stated [facility]. documented in this encounter Plan of Treatment Upcoming Encounters Date Type Department Care Team (Late st Contact Info) Description 03/17/2025 3:30 PM EDT Office Visit [facility] OPTOMETRY [address] [place] [address] Aura Champagne, OD [address] [place] [address] documented as of this encounter Visit Diagnoses Not on filedocumented in this encounter Additional Health Concerns Assessment Noted Time PHQ-9 Depression Total Score: 5 10/10/20 24 11:44 AM EST documented as of this encounter Care Teams Licensed Home Inspector Relationship Specialty Start Date End Date Patricia Sun DO [address] [place] [address] PCP - General Family Medicine 10/10/24 documented as of this encounter
--- OUTSIDE RECORDS SUMMARY | 2024-12-18 13:29 | XMS_ITS | Encounter Summary ---
Author Organization [facility] [facility] Address [address] [place] [address] Care Team Providers Care Make Up Operator Name Role Phone Jalen Martinez MD Primary Care [facility] Reason for Visit * Consultation (Routine) - Authorized Specialty Diagnoses / Procedures Referred By [employer] t Referred To Contact Physical Therapy Diagnoses SAH (subarachnoid hemorrhage) (CMS/HCC) Subarachnoid hemorrhage ([facility]/HCC) Dayana James, [place] [place] [address] Phone: tel: fax: [address] [address] Phone: tel: fax: Referral ID Status Reason Start Date Expiration Date Visits Requested Visits Authorized [id number] Authorized Specialty Services Required 09/11/2025 20 12 Encounter Details Date Type Department Care Team (Late st Contact Info) Description 12/04/2024 1:15 PM EST Treatment [address] [address] Jayjay Childs PTA SAH (subarachnoid hemorrhage) (CMS/HCC) (Primary Dx) Social [...] Progress Notes * Jayjay Childs PTA - 12/04/2024 1:15 PM EST [facility] - Outpatient PHYSICAL THERAPY DAILY TREATMENT NOTE - OP Date: 12/04/2024 Visit Number: 4 Patient Name: Jessica Arana : 1975 Age: 48 y.o. Gender: female Diagnosis: ICD-10-CM ICD-9-CM 1. SAH (subarachnoid hemorrhage) (CMS/[facility]) I60.9 430 Date of Onset/Surgery: 11/06/2024 Referring Provider: Dayana James DO Insurance: Pay[place] / Plan[place] / Product Type: *No Product type* / Patient Identified by: Jayjay Childs PTA Language: Speaks and understands Latvian as preferred language with no sales solutions representative required Medications: Current Outpatient Medications on File [...] Fall risk: No SUBJECTIVE Subjective Report: Patient reports she restarted Baclofen Monday. Has been feeling very tired and sleepy. Chart Reviewed: Yes Pain: Pain L UE 7/10 described as deep ache like after you work out good. TREATMENT INTERVENTION: NuStep X 5min LE only Calf Stretching on Slant board 3 x 20 sec hold Side stepping 4 laps length of // bars with [place] Tband around ankles Heel walking 4laps Toe walking 4 laps Heeltapping on 6 inch step 10 reps unsupported by UE Backwards walking 4 laps distance of 8ft per lap Standing air ex cushion unsupported UE flexion with small ball x 1 mnin Upper body rotation with small ball 10 reps each side standing on cushion with horizontal head turns Dyn. Standing reaching out of midline all planes Chair squat 2 x 10 reps ASSESSMENT/Response to Treatment Good fatigue L LE noted by increasing shaking and foot slap with gait. Pain tends to increase in evening with burning sensation posterior thigh and radiating down arm. Patient Education: Education provided: yes Education Provided To: Patient utilizing Explanation mode(s) of education Response to Education: Verbal Understanding PLAN POC Development/Review: No Change in the Plan of Care; Participants: Patient Interventions Time Entry: Modalities: Therapeutic procedures: Therapeutic Exercise Time Entry: 45 Total Treatment Time: 45 mins Documentation completed by Jayjay Childs PTA documented in this encounter Plan of Treatment Upcoming Encounters Date Type Department Care Team (Late st Contact Info) Description 12/19/2024 1:00 PM EST Treatment [facility] [address] [place] [address] Lauri Rivera, GODOY/L 12/19/2024 1:45 PM EST Treatment [facility] [address] [address] Jayjay Childs, CHASSIS WIRER 12/24/2024 12:30 PM EST Treatment [facility] [address] [address] Lauri Rivera, GODOY/L 12/26/2024 11:15 AM EST Treatment [facility] [address] [address] Erasmo Choudhury, OT 12/26/2024 12:00 PM EST [facility] [address] [address] Jayjay Childs, CHASSIS WIRER 01/01/2025 1:00 PM EST Treatment [facility] [address] [address] Bea Rebollar, PT 01/01/2025 1:45 PM EST Treatment [facility] [address] [address] Jayjay Childs, CHASSIS WIRER 01/03/2025 11:15 AM EST Treatment [facility] [address] [address] Jayjay Childs, CHASSIS WIRER 01/08/2025 1:15 PM EDT [facility] [address] [address] Lauri Rivera, GODOY/L 01/08/2025 2:00 PM EDT [facility] [address] [address] Bea Rebollar, PT 01/10/2025 12:30 PM EDT Treatment [facility] [address] [address] Nicole LauriDANIELA/Teena 01/13/2025 12:30 PM EDT Treatment [facility] [address] [address] Erasmo Choudhury, OT documented as [...] - Not met Patient will demo L pump and still operator strength >= 19 to be able [...] WFL for IADLs, Patient will demo L pump and still operator strength >= 24# to be able [...] with 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
== END 2024-12-18 13:11 | disposition home or self-care (01) ==
LOC: HO.US 13:10
PROVIDERS: PCP Family Medicine; Visit Provider Family Medicine
DX: N95.0 Postmenopausal bleeding (principal)
CPT/HCPCS: 76830; 76856

== ENCOUNTER → 2024-12-18 13:12 | Outpatient (BNV) | payer MEDICAID, SELFPAY | PROVIDERS: PCP Family Medicine; Visit Provider Radiology Diagnostic Radiology | DX: N95.0 Postmenopausal bleeding (principal) | CPT/HCPCS: 76830; 76856 ==

== ENCOUNTER 2025-01-14 11:59 | Outpatient (REF) | payer MEDICAID, SELFPAY ==
[2025-01-14 13:08] LABS: MANUAL DIFF FLAG NO
[2025-01-14 13:23] LABS: Basophils Percent Auto 0.4 % (0-2); Eosinophils Absolute Auto 0.1 X10*3/uL (0.0-0.4); Eosinophils Percent Auto 0.7 % (0-4); Hematocrit 42.2 % (37.0-47.0); Hemoglobin 14.4 g/dl (12.0-16.0); Imm Gran Abs Auto 0.01 X10*3/uL (0.00-0.03); Imm Gran Pct Auto 0.1 % (0.0-0.4); Lymphocytes Absolute Auto 1.6 X10*3/uL (1.2-4.9); Lymphocytes Percent Auto 23.1 % (20-40); Mean Corpuscular HGB Conc 34.1 g/dl (31.0-35.0); Mean Corpuscular Hemoglobin 31.3 pg (27.0-33.0); Mean Corpuscular Volume 91.7 fL (80.0-98.0); Mean Platelet Volume 9.6 fL (9.4-12.3); Monocytes Absolute Auto 0.3 X10*3/uL (0.1-1.2); Monocytes Percent Auto 4.2 % (2-11); Neutrophils Absolute Auto 4.9 x10*3/uL (2.0-8.3); Neutrophils Percent Auto 71.5 % (45-73); Platelet Count 277 X10*3/uL (160-400); Red Cell Distribution Width 11.9 % (11.0-16.0); White Blood Count 6.9 X10*3/uL (4.8-10.8)
[2025-01-14 13:36] LABS: Estimated Average Glucose 91 mg/dL; Hemoglobin A1c % 4.8 % (<6.0); Total Hemoglobin (HGBA1C) 4121.3336 umol/L
[2025-01-14 13:48] LABS: Alanine Aminotransferase 38 U/L (0-31); Albumin Level 4.3 g/dL (3.5-5.0); Alkaline Phosphatase 134 U/L (39-117); Anion Gap 13 (12-20); Aspartate Amino Transferase 23 U/L (5-31); Bilirubin Direct 0.2 mg/dL (0.0-0.5); Bilirubin Total 0.5 mg/dL (0.0-1.0); Blood Urea Nitrogen 13 mg/dL (9-16); C Reactive Protein 0.43 mg/dL (< or = 0.50); Calcium 9.3 mg/dL (8.4-10.2); Carbon Dioxide 23 mmol/L (22-29); Chloride 110 mmol/L (96-108); Cholesterol 180 mg/dL (<200); Estimated Glomerular Filt Rate > 60; Glucose Random 103 mg/dL (60-115); HDL Cholesterol 44 mg/dL (>40); LDL Cholesterol Calculated 120 mg/dL (<100); Potassium 3.8 mmol/L (3.3-5.1); Sodium 142 mmol/L (135-145); Total Protein 7.7 g/dL (6.5-8.0); Triglycerides 84 mg/dL (<150)
[2025-01-14 13:58] LABS: Appearance Urine Cloudy; Color Urine Yellow; Glucose Urine UA Negative (Negative); Leukocyte Esterase Urine Small (1+) (Negative); Nitrite Urine Positive (Negative); PH 5.5 (5.0-9.0); Specific Gravity - Urine 1.025 (1.005-1.025); UMIC TRIGGER UA YES; Urine Blood Negative (Negative); Urine Ketones Trace mg/dL (Negative); Urine Protein Negative (Neg-Trace)
[2025-01-14 14:05] LABS: Bacteria Urine 4+ (None Seen); Hyaline Casts Urine 0-2 /LPF (0-2); RBC Urine 0-2 /HPF (0-2); Squamous Epithelial Cell Urine >20 /HPF (0-2); WBC Urine 21-50 /HPF (0-5)
[2025-01-14 14:08] LABS: Erythrocyte Sedimentation Rate 11 MM/HR (0-20); Thyroid Stimulating Hormone 2.72 uIU/mL (0.32-4.0); Vitamin D 25-OH Total 32.1 ng/mL (>30)
== END 2025-01-14 12:00 | disposition home or self-care (01) ==
LOC: HO.HHCL 11:59
PROVIDERS: Visit Provider Family Medicine
DX: M79.603 Pain in arm, unspecified (principal); M79.606 Pain in leg, unspecified; G81.94 Hemiplegia, unspecified affecting left nondominant side; S06.2X5D Diffuse traumatic brain injury with loss of consciousness greater than 24 hours with return to pre-existing conscious levels, subsequent encounter; Z86.79 Personal history of other diseases of the circulatory system; R45.86 Emotional lability
CPT/HCPCS: 36415; 80048; 80061; 80076; 81001; 82306; 82550; 83036; 84439; 84443; 85025; 85652; 86140

== ENCOUNTER 2025-01-20 11:33 | Outpatient (REF) | payer MEDICAID, SELFPAY ==
--- NOTE | ~2025-01-20 | XR_ITS ---
EXAMINATION: XR LUMBAR SPINE 2-3 VIEWS HISTORY: PAIN COMPARISON: There are no prior studies for comparison. FINDINGS: AP, lateral, and coned down views of the lumbar spine are submitted. Osseous mineralization is normal. There is mild levoscoliosis. The vertebral bodies maintain normal height without evidence of fracture or spondylolisthesis. The intervertebral disc spaces are preserved. There is a limbus vertebra involving the superior endplate of L4. The posterior elements are intact. There are numerous calcifications overlying the lower pole of the right renal shadow. XR/XR lumbar spine 2-3V IMPRESSION: 1. Mild levoscoliosis. 2. Probable extensive right nephrolithiasis. This could be confirmed with ultrasound if desired. Electronically signed by: Adrian Soliman MD 01/20/2025 02:08 PM EDT
--- NOTE | ~2025-01-20 | XR_ITS ---
EXAMINATION: XR HIP 2 OR MORE VIEWS LEFT HISTORY: PAIN COMPARISON: There are no prior studies for comparison. FINDINGS: Two views of the left hip are submitted. Osseous mineralization is normal. There is no fracture or dislocation. The joint space is maintained. The soft tissues are unremarkable. XR/XR hip LT min 2V IMPRESSION: Unremarkable examination of the left hip. Electronically signed by: Adrian Soliman MD 01/20/2025 12:52 PM EDT
--- NOTE | ~2025-01-20 | XR_ITS ---
EXAMINATION: XR CERVICAL SPINE CLINICAL INFORMATION: PAIN; worsening left arm and shoulder pain. Leg pain. History of TBI in July. COMPARISON: None available. TECHNIQUE: 3 views of the cervical spine were obtained. FINDINGS: Normal lordosis. Mild right convex scoliosis. No subluxations. No fracture, compression deformity, or suspicious bone lesion. C1-2 articulation and craniocervical junction are intact and aligned. Normal facet alignment. Early multilevel degenerative facet changes. Minimal disc degeneration present spanning C3-C7. No bony neural foraminal narrowing on either side. The pre and paravertebral soft tissues are normal. XR/XR cervical spine 3V IMPRESSION: 1. No acute findings of the cervical spine. 2. Early degenerative spondylosis. Electronically signed by: Chuy Day MD 01/20/2025 01:11 PM EDT
--- NOTE | ~2025-01-20 | XR_ITS ---
EXAMINATION: XR SHOULDER, LEFT CLINICAL INFORMATION: PAIN COMPARISON: None available. TECHNIQUE: AP external rotation, Grashey, scapular Y, and axillary views of the left shoulder. FINDINGS: No acute cortical disruption or malalignment. No lytic or blastic lesions. No metallic or radiopaque foreign body. No subcutaneous emphysema. XR/XR shoulder LT min 2V IMPRESSION: No acute fracture or dislocation. Negative exam. Electronically signed by: Rico Reardon MD 01/20/2025 12:53 PM EDT
== END 2025-01-20 11:34 | disposition home or self-care (01) ==
LOC: HO.HHCX 11:33
PROVIDERS: Visit Provider Family Medicine
DX: M79.605 Pain in left leg (principal); M79.602 Pain in left arm; G81.94 Hemiplegia, unspecified affecting left nondominant side
CPT/HCPCS: 72040; 72100; 73030; 73502

== ENCOUNTER → 2025-01-20 11:36 | Outpatient (BNV) | payer MEDICAID, SELFPAY | PROVIDERS: Visit Provider Radiology Diagnostic Radiology | DX: M25.552 Pain in left hip (principal); M54.2 Cervicalgia; M54.50 Low back pain, unspecified; M25.512 Pain in left shoulder | CPT/HCPCS: 72040; 72100; 73030; 73502 ==

== ENCOUNTER 2025-01-30 11:03 | Outpatient (REF) | payer MEDICAID, SELFPAY ==
--- NOTE | ~2025-01-30 | US_ITS ---
CLINICAL HISTORY: PROBABLE EXTENSIVE RIGHT NEPHROLITHIASIS ON XRAY US renal Comparison: None Findings: Right kidney 9.1 cm length. No significant focal abnormality. Probable parapelvic renal cysts. Left kidney 9.2 cm length. No significant focal abnormality. Prominent extrarenal pelvis. No bilateral hydronephrosis. Normal bilateral renal echogenicity. Impression: No significant abnormalities. This document has been electronically signed by: Bill Caledron MD on 01/30/2025 20:13:38
--- OUTSIDE RECORDS SUMMARY | 2025-01-30 12:28 | XMS_ITS | Encounter Summary ---
Author Organization [employer] Address [address] [facility] [address] [place] [address] Care Team Providers Care Progress Developer Name Role Phone Patricia Sun DO Primary Care Provider + [phone] Reason for Visit * Reason Onset Date Comments Med Refill 01/29/2025 Encounter Details Date Type Department Care Team ([facility] st Contact Info) Description 01/29/2025 Refill [facility] MEDICINE [address] [place] [address] Patricia Sun DO [address] [place] [address] Social History Tobacco Use Types Packs/Day Years [...] Care Team (Late st Contact Info) Description 03/19/2025 3:30 PM EDT Office Visit [facility] OPTOMET[facility] [address] [place] [address] Aura Champagne, OD [address] [place] [address] documented as of this encounter Visit Diagnoses Not on filedocumented in this encounter Additional Health Concerns Assessment Noted Time PHQ-9 Depression Total Score: 5 10/10/20 11:44 AM EST documented as of this encounter Care Teams Progress Developer Relationship Specialty Start Date End Date Patricia Sun DO [address] [place] [address] PCP - General Family Medicine 10/10/24 documented as of this encounter
--- OUTSIDE RECORDS SUMMARY | 2025-01-30 12:28 | XMS_ITS | Encounter Summary ---
Author Organization [place] [address] Care Team Providers Care Accountant Tax Name Role Phone Jalen Martinez MD Primary Care [facility] Encounter Details Date Type Department Care Team (Late st Contact Info) Description 01/28/2025 Patient Outreach [address] [address] Rosy Valero, ME[employer] B[employer]ER [employer] SLICER Social History Tobacco Use Types Packs/Day Years [...] as of this encounter Progress Notes * Rosy Valero LCSW - 01/28/2025 11:53 AM EDT SW placed call out to pt to remind her of appt on 01/29 @ 11am as when SW spoke /w pt end of last week she ws unsure if she would make appt on 01/29 due to waiting for clearance from neurology.Pt had an EMG test week of 01/13 for decreased muscle strength and neurologist suggested she wait until resultsuntil she resumed PT/OT. documented in this encounter Plan of Treatment Upcoming Encounters Date Type Department Care Team (Late st Contact Info) Description 02/05/2025 12:45 PM EDT Treatment [facility] [address] [address] Jayjay Childs, SPORTS LEADERSHIP INSTRUCTOR 02/05/2025 1:30 PM EDT Treatment [facility] [address] [address] Erasmo Choudhury, OT 02/07/2025 10:30 AM EDT Treatment [facility] [address] [address] Lauri Rivera COTA/Teena 02/07/2025 11:15 AM EDT Treatment [facility] [address] [address] Jayjay Childs PTA 02/11/2025 12:45 PM EDT Treatment [facility] Therapy [address] [address] Consuelo Ro COTA 02/11/2025 1:30 PM EDT Treatment [facility] [address] [address] Jayjay Childs PTA 02/13/2025 12:45 PM EDT Treatment [facility] [address] [address] Lauri Rivera COTA/Teena 02/13/2025 1:30 PM EDT Treatment [facility] [address] [address] Jayjay Childs, SPORTS LEADERSHIP INSTRUCTOR 02/18/2025 10:00 AM EDT Treatment [facility] [address] [address] Bea Rebollar, PT 02/18/2025 10:45 AM EDT Treatment [facility] [address] [address] Lauri Rivera COTA/Teena documented as of this encounter Goals Goal Patient Goal Type Associated Problems Recent Progress Patient-Stated? Author Pt goal General Yes Erasmo Choudhury, OT Note: To be back to normal STG 6-8 visits General On track(2024 12:03 PM EST) No Erasmo Choudhury, OT Note: Patient will demo Lsh flex AROM>= 130 to be able to reach the soap in the shower - Met Patient will demo L sh abd AROM>= 100 to be able to dress with increased ease - met Patient will demo L construction supervisor strength >= 19 to be able to open a jar with moderate difficulty - Nmet Patient will demo L lateral pinch strength >= 11 to be able to open snack bags - met Patient will demo improved FMC as evidenced by L 9 hole peg test<= 49 sec to be able to manipulate utensils - met Patient will demo improved GMC as evidenced by L box and blocks score >= 38 to be able todress with increased ease - progressing Patient will demo improved functional use of L upper extremity as evidenced by Quick Dash score <= 30 to be able to perform IADLS with increased ease - progressing Patient will perform initial HEP MOD I - met Patient will perform upgraded HEP MOD I Patient will demo Lsh flex AROM>= 140to be able to reach items in cabinets Patient will demo L sh abd AROM>= 110 to be able to don jacket with increased ease Patient will demo improved FMC as evidenced by L 9 hole peg test<= 35 sec to be able to cut meat LTG 16 visits General No change(12/02 4:58 PM EST) No Erasmo Choudhury, OT Note: Patient will demo L UE AROM WFL Patient will demo L UE strength WFL for IADLs, Patient will demo L construction supervisor strength >= 24# to be able to [...] with 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 Pt will improve L hip flexion, extension and abduction to >/= 4/5 for strength and stability Pt will be independent with HEP for maintenance of gains made in skilled physical therapy documented as of this encounter Visit Diagnoses Diagnosis Counseling and coordination of care- Primary documented in this encounter Additional Health Concerns Assessment Noted Time PHQ-9 Depression Total Score: 0 10/01/20 24 5:02 PM EST documented as of this encounter Care Teams Accountant Tax Relationship Specialty Start Date End Date Jalen Martinez MD [address] [place] [address] PCP - General Internal Medicine 10/01/24 documented as of this encounter
--- OUTSIDE RECORDS SUMMARY | 2025-01-30 12:28 | XMS_ITS | Clinical Summary ---
Author Organization [employer] Address [address] [facility] [address] [place] [address] Care Team Providers Care Gre Instructor Name Role Phone Patricia Sun Primary Care Provider [phone] Allergies Active Allergy Reactions Criticality Noted Date Comments Bee Venom Hives 11/24/2024 Grapefruit Concentrate Swelling 11/24/2024 Ibuprofen Swelling 09/04/2024 Medications * This document contains information received from the source organization and may not represent a complete record from that organization. cholecalcifero l (Vitamin D-3) 50 MCG (1999) tablet Take 1 tablet by mouth Once per day. 10/02/20 24 025 Active lacosamide (Vimpat) 100 MG tablet TAKE 1 TABLET BY MOUTH EVERY DAY AT BEDTIME FOR 1 WEEK THEN INCREASE TO 1 TABLET TWICE A DAY Active gabapentin (Neurontin) 100 MG capsule Take 3 capsules (300 mg) by mouth every 8 (eight) hours. 90 capsule 3 01/14/20 25 026 Active acetaminophen (Tylenol 8 Hour) 650 MG ER tablet Take 1 tablet (650 mg) by mouth every 8 (eight) hours if needed for mild pain. Do not crush, chew, or split. 90 tablet 3 01/14/20 25 026 Active tiZANidine (Zanaflex) 2 MG tablet Take 1 tablet (2 mg) by mouth if needed in the morning, at noon, and at bedtime for muscle spasms. 90 tablet 3 01/14/20 25 026 Active oxyCODONE (Roxicodone) 5 MG immediate release tabletIndicati ons:Arm and leg pain Take 1 tablet (5 mg) by mouth every 8 (eight) hours if needed for severe pain for up to 28 days. 84 tablet 01/21/20 25 025 Active divalproex (Depakote ER) 500 MG 24 hr tablet Take 1 tablet by mouth in the morning. Do not crush, chew or split. 025 Discontinued tiZANidine (Zanaflex) 2 MG tablet Take 1 tablet (2 mg) by mouth if needed in the morning, at noon, and at bedtime for muscle spasms. 60 tablet 1 12/02/19 25 025 Discontinued(Re order (will not trigger notification to Pharmacy)) acetaminophen (Tylenol 8 Hour) 650 MG ER tablet Take 1 tablet (650 mg) by mouth every 8 (eight) hours if needed for mild pain. Do not crush, chew, or split. 50 tablet 1 12/02/19 25 025 Discontinued(Re order (will not trigger notification to Pharmacy)) oxyCODONE (Roxicodone) 5 MG immediate release tabletIndicati ons:Arm and leg pain Take 1 tablet (5 mg) by mouth every 8 (eight) hours if needed for severe pain for up to 7 days. 21 tablet 01/14/20 25 025 Discontinued(Re order (will not trigger notification to Pharmacy)) Active Problems Problem Noted Date Diagnosed Date History of subarachnoid hemorrhage 11/24/2024 History of traumatic brain injury 11/24/2024 History of seizures 11/24/2024 Subarachnoid hemorrhage 09/04/2024 Encounters * This document contains information received from the source organization and may not represent a complete record from that organization. Date Type Department Care Team Description 01/29/2025 Refill [facility] [address] [place] [address] Patricia Sun DO 01/23/2025 Orders Only [facility] [address] [place] [address] Patricia Sun DO Abnormal x-ray of lumbar spine (Primary Dx) 01/23/2025 Telephone [facility] [address] [place] [address] Patricia Sun DO Results 01/20/2025 Orders Only [facility] [address] [place] [id number] Patricia Sun DO 01/20/2025 Telephone [facility] [address] [facility] [place] [address] Patricia Sun DO 01/20/2025 Telephone [facility] [address] [facility] [place] [address] Patricia Sun DO med request 01/17/2025 Refill [facility] [address] [facility] [place] [address] Patricia Sun DO Arm and leg pain 01/15/2025 Telephone [facility] [address] [facility] [place] [address] Patricia Sun DO 01/14/2025 Telephone [facility] [address] [facility] [place] [address] Patricia Sun DO telephone call 01/13/2025 12:00 PM EDT Office Visit [facility] [place] [address] Patricia Sun DO Arm and leg pain (Primary Dx); Hemiparesis of left nondominant side, unspecified hemiparesis etiology (CMS/HCC); Diffuse brain injury, with loss of consciousness greater than 24 hours with return to pre-existing conscious level, subsequent encounter; History of subarachnoid hemorrhage; Mood changes 01/13/2025 Travel 01/10/2025 Travel 01/10/2025 Population Health Risk Score [facility] () Department [address] [place] [phone] Provider, Population Health Generic 01/09/2025 2:30 PM EDT Office Visit [facility] [address] [place] [address] Ihsan, Aura, OD Presbyopia of both eyes (Primary Dx) 01/08/2025 Telephone [facility] [address] [facility] [place] [address] Patricia Sun DO Nurse Triage 12/02/2024 Refill [facility] [address] [facility] [place] [address] Patricia Sun DO 11/29/2024 11:15 AM EST Office Visit [facility] [address] [place] [phone] Patricia Sun DO Routine history and physical examination of adult (Primary Dx); Seizure disorder (CMS/HCC); History of subarachnoid hemorrhage; Abnormal MRI, cervical spine; Postmenopausal bleeding; BMI 23.0-23.9, adult; Encounter for screening for malignant neoplasm of colon; Encounter for screening mammogram for malignant neoplasm of breast 11/29/[address] [address] Jb DeliaPERNELL rodriguez Confirm Pharmacy 11/29/2024 Travel 11/26/2024 3:30 PM EST Office Visit [facility] [address] [place] [phone] Aura Champagne, OD History of subarachnoid hemorrhage (Primary Dx); 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; Blepharitis of both eyes, unspecified eyelid, unspecified type; PVD (posterior vitreous detachment), right eye; Presbyopia of both eyes 11/26/2024 Travel 11/25/2024 Telephone [facility] [address] [place] [address] Aura Champagne, OD 11/22/2024 Travel 11/19/2024 Patient Outreach [address] [address] Patricia Sun DO Pre-visit Planning ((Unable to reach for PVP screening, LVM)) 11/08/2024 Orders Only [address] [address] Patricia Sun DO Subarachnoid hemorrhage (CMS/HCC) (Primary Dx) 11/07/[address] [address] Violeta Callaway, RN Results 11/06/[address] [address] Patricia Sun DO Referral from Last 3 Months Immunizations Name Administration [...] Sign Reading Time Taken Comments Blood Pressure 126/87 01/13/2025 12:36 PM EDT Pulse 91 01/13/2025 12:36 PM EDT Temperature 36.2 ??C (97.1 ??F) 01/13/2025 12:36 PM E DT Respiratory Rate 20 01/13/2025 12:36 PM EDT Oxygen Saturation - - Inhaled Oxygen Concentration - - Weight 50.8 kg (112 lb) 01/13/2025 12:36 PM EDT Height 149.9 cm (4' 11 ) 01/13/2025 12:36 PM EDT Body Mass Index 22.62 01/13/2025 12:36 PM EDT Plan of Treatment Upcoming Encounters Date Type Department Care Team (Late st Contact Info) Description 03/19/2025 3:30 PM EDT Office Visit [facility] [address] [place] [address] Ihsan, Aura, OD [address] [place] [address] Health Maintenance Due Date Last Done Comments CT Colonography 1974 Colonoscopy 1974 Colorectal Cancer Screening 1974 FIT DNA/Cologuard 1974 FIT 1974 FOBT 1974 Sigmoidoscopy 1974 Family Planning (PISQ) 1989 Hepatitis B Vaccines (1 of 3 - 19+ 3-dose series) 1993 Pap Smear 1995 Cervical Cancer Screening 2004 HPV/Cotest 2004 Mammogram 2014 DTaP/Tdap/Td Vaccines (2 - T d or Tdap) 03/22/2022 03/22/2012 COVID-19 Vaccine ( - 2023-2 5 season) 2024 Influenza Vaccine (#1) 2024 Pneumococcal Vaccine: 50+ Years (1 of 1 - PCV) 2024 Zoster Vaccines (1 of 2) 2024 Depression Screening 10/10/2025 10/10/2024, 10/10/2024 SDOH Screening 10/10/2025 10/10/2024 Alcohol/Substance Use Screening 11/29/2025 11/29/2024 Tobacco Screening 01/13/2026 01/13/2025 Lipid Panel 01/14/2030 01/14/2025, 10/24/2024 RSV Patients and Patients Aged 60 [...] Procedure Name Priority Date/Time Associated Diagnosis Comments XR CERVICAL SPINE 3V Routine 01/20/2025 11:36 AM EDT XR HIP 2 OR 3 VIEWS LEFT Routine 01/20/2025 11:36 AM EDT Arm and leg pain Hemiparesis of left nondominant side, unspecified hemiparesis etiology (CMS/HCC) XR LUMBAR SPINE 2-3 VIEWS Routine 01/20/2025 11:36 AM EDT Arm and leg pain Hemiparesis of left nondominant side, unspecified hemiparesis etiology (CMS/HCC) XR SHOULDER 2+ VIEWS LEFT Routine 01/20/2025 11:36 AM EDT Arm and leg pain Hemiparesis of left nondominant side, unspecified hemiparesis etiology (CMS/HCC) CBC WITH AUTO DIFFERENTIAL Routine 01/14/2025 12:12 PM EDT Subarachnoid hemorrhage (CMS/HCC) URINALYSIS, COMPLETE Routine 01/14/2025 12:12 PM EDT Arm and leg pain Hemiparesis of left nondominant side, unspecified hemiparesis etiology (CMS/HCC) Diffuse brain injury, with loss of consciousness greater than 24 hours with return to pre-existing conscious level, subsequent encounter History of subarachnoid hemorrhage Mood changes CREATINE KINASE, TOTAL Routine 01/14/2025 12:12 PM EDT Arm and leg pain Hemiparesis of left nondominant side, unspecified hemiparesis etiology (CMS/HCC) Diffuse brain injury, with loss of consciousness greater than 24 hours with return to pre-existing conscious level, subsequent encounter History of subarachnoid hemorrhage Mood changes C-REACTIVE PROTEIN Routine 01/14/2025 12 :12 PM EDT Arm and leg pain Hemiparesis of left nondominant side, unspecified hemiparesis etiology (CMS/HCC) Diffuse brain injury, with loss of consciousness greater than 24 hours with return to pre-existing conscious level, subsequent encounter History of subarachnoid hemorrhage Mood changes SED RATE BY MODIFIED WESTERGREN Routine 01/14/2025 12:12 PM EDT Arm and leg pain Hemiparesis of left nondominant side, unspecified hemiparesis etiology (CMS/HCC) Diffuse brain injury, with loss of consciousness greater than 24 hours with return to pre-existing conscious level, subsequent encounter History of subarachnoid hemorrhage Mood changes BASIC METABOLIC PANEL Routine 01/14/2025 12:12 PM EDT Arm and leg pain Hemiparesis of left nondominant side, unspecified hemiparesis etiology (CMS/HCC) Diffuse brain injury, with loss of consciousness greater than 24 hours with return to pre-existing conscious level, subsequent encounter History of subarachnoid hemorrhage Mood changes HEMOGLOBIN A1C Routine 01/14/2025 12:12 PM EDT Arm and leg pain Hemiparesis of left nondominant side, unspecified hemiparesis etiology (CMS/HCC) Diffuse brain injury, with loss of consciousness greater than 24 hours with return to pre-existing conscious level, subsequent encounter History of subarachnoid hemorrhage Mood changes HEPATIC FUNCTION PANEL Routine 01/14/2025 12:12 PM EDT Arm and leg pain Hemiparesis of left nondominant side, unspecified hemiparesis etiology (CMS/HCC) Diffuse brain injury, with loss of consciousness greater than 24 hours with return to pre-existing conscious level, subsequent encounter History of subarachnoid hemorrhage Mood changes VITAMIN D,25-OH,TOTAL,IA Routine 01/14/2025 12:12 PM EDT Arm and leg pain Hemiparesis of left nondominant side, unspecified hemiparesis etiology (CMS/HCC) Diffuse brain injury, with loss of consciousness greater than 24 hours with return to pre-existing conscious level, subsequent encounter History of subarachnoid hemorrhage Mood changes TSH Routine 01/14/2025 12:12 PM EDT Arm and leg pain Hemiparesis of left nondominant side, unspecified hemiparesis etiology (CMS/HCC) Diffuse brain injury, with loss of consciousness greater than 24 hours with return to pre-existing conscious level, subsequent encounter History of subarachnoid hemorrhage Mood changes LIPID PANEL, STANDARD Routine 01/14/2025 12:12 PM EDT Arm and leg pain Hemiparesis of left nondominant side, unspecified hemiparesis etiology (CMS/HCC) Diffuse brain injury, with loss of consciousness greater than 24 hours with return to pre-existing conscious level, subsequent encounter History of subarachnoid hemorrhage Mood changes T4, FREE Routine 01/14/2025 12:12 PM EDT Arm and leg pain Hemiparesis of left nondominant side, unspecified hemiparesis etiology (CMS/HCC) Diffuse brain injury, with loss of consciousness greater than 24 hours with return to pre-existing conscious level, subsequent encounter History of subarachnoid hemorrhage Mood changes EMG Routine 01/13/2025 Arm and leg pain Hemiparesis of left nondominant side, unspecified hemiparesis etiology (CMS/HCC) Diffuse brain injury, with loss of consciousness greater than 24 hours with return to pre-existing conscious level, subsequent encounter History of subarachnoid hemorrhage US PELVIS TRANSVAGINAL Routine 12/19/2024 10:43 AM EST Postmenopausal bleeding OCT, OPTIC NERVE - OU - BOTH EYES Routine 11/26/2024 3:30 PM EST 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 ?[place] [address] ?XRay Report ? Signed ? Patient: Jessica Arana ?MR#: [id number] ?? 1244 ? : 1975 ?Acct:[id number] ? Age/Sex: 49 / F ?ADM Date: 01/20/25 ? Loc: HO.HHCX ? Attending Dr: Patricia Sun DO ? Ordering Physician: Patricia Sun DO ?? Date of Service: 01/20/25 ?? Procedure(s): XR cervical spine 3V ?? Accession Number(s): [id number] ? cc: Patricia Sun DO ? EXAMINATION: ?? XR CERVICAL SPINE ? CLINICAL INFORMATION: ?? PAIN; worsening left arm and shoulder pain. Leg pain. History of TBI in ?? July. ? COMPARISON: ?? None available. ? TECHNIQUE: ?? 3 views of the cervical spine were obtained. ? FINDINGS: ?? Normal lordosis. Mild right convex scoliosis. No subluxations. ?? No fracture, compression deformity, or suspicious bone lesion. ?? C1-2 articulation and craniocervical junction are intact and aligned. ?? Normal facet alignment. Early multilevel degenerative facet changes. ?? Minimal disc degeneration present spanning C3-C7. ? No bony neural foraminal narrowing on either side. ? The pre and paravertebral soft tissues are normal. ? XR/XR cervical spine 3V ?? IMPRESSION: ?? 1. No acute findings of the cervical spine. ?? 2. Early degenerative spondylosis. ? Electronically signed by: ??Chuy Day MD ??01/20/2025 01:11 PM EDT RP ? Dictated By: ?Chuy Day MD ? Signed By: ?<Electronically signed by Chuy Day MD in OV> ?01/20/25 1311 ? DD/ 1136 ? TD/TT: 01/20/25 1220 ? [employer] Developer: ? Procedure Note Jean Marie, Image - 01/20/[address] [address] XRay Report Signed Patient: Jessica AranaMR#: [id number] 1244 : 1975Acct:[id number] Age/Sex: 49 / FADM Date: 01/20/25 Loc: HO.HHCX Attending Dr: Patricia Sun DO Ordering Physician: Patricia Sun DO Date of Service: 01/20/25 Procedure(s): XR cervical spine 3V Accession Number(s): [id number] cc: Patricia Sun DO EXAMINATION: XR CERVICAL SPINE CLINICAL INFORMATION: PAIN; worsening left arm and shoulder pain. Leg pain. History of TBI in July. COMPARISON: None available. TECHNIQUE: 3 views of the cervical spine were obtained. FINDINGS: Normal lordosis. Mild right convex scoliosis. No subluxations. No fracture, compression deformity, or suspicious bone lesion. C1-2 articulation and craniocervical junction are intact and aligned. Normal facet alignment. Early multilevel degenerative facet changes. Minimal disc degeneration present spanning C3-C7. No bony neural foraminal narrowing on either side. The pre and paravertebral soft tissues are normal. XR/XR cervical spine 3V IMPRESSION: 1. No acute findings of the cervical spine. 2. Early degenerative spondylosis. Electronically signed by: Chuy Day MD 01/20/2025 01:11 PM EDT RP Dictated By: Chuy Day MD Signed By: <Electronically signed by Chuy Day MD in OV> 01/20/25 1311 DD/ 1136 TD/TT: 01/20/25 1220 [employer] Developer: us Patricia Sun DO IMG XR PROCEDURES Final Resu lt * XR Hip 2 or 3 Views Left (01/20/2025 11:36 AM EDT) Anatomical Region Laterality Modality Lower Extremities, Hip Left Radiograp hic Imaging 01/20/2025 11:3 6 AM EDT Narrative 01/20/2025 12:54 PM EDT ?[facility] ?[address] ?[place] [address] ?XRay Report ? Signed ? Patient: Jessica Arana ?MR#: [id number] ?? 1244 ? : 1975 ?Acct:[id number] ? Age/Sex: 49 / F ?ADM Date: 01/20/25 ? Loc: HO.HHCX ? Attending Dr: Patricia Sun DO ? Ordering Physician: Patricia Sun DO ?? Date of Service: 01/20/25 ?? Procedure(s): XR hip LT min 2V ?? Accession Number(s): [id number] ? cc: Patricia Sun DO ? EXAMINATION: ??XR HIP 2 OR MORE VIEWS LEFT ? HISTORY: PAIN ? COMPARISON: There are no prior studies for comparison. ? FINDINGS: ?? Two views of the left hip are submitted. ??Osseous ?? mineralization is normal. ??There is no fracture or dislocation. ??The ?? joint space is maintained. ??The soft tissues are unremarkable. ? XR/XR hip LT min 2V ?? IMPRESSION: ?? Unremarkable examination of the left hip. ? Electronically signed by: ??Adrian Soliman MD ??01/20/2025 12:52 PM EDT ?? RP ? Dictated By: ?Adrian Soliman MD ? Signed By: ?<Electronically signed by Adrian Soliman MD in OV> ?01/20/25 1252 ? DD/ 1136 ? TD/TT: 01/20/25 1220 ? [employer] Developer: ? Procedure Note Donotnanoter, Image - 01/20/2025 [facility] [address] [place] [address] XRay Report Signed Patient: Jessica AranaMR#: [id number] 1244 : 1975Acct:[id number] Age/Sex: 49 / FADM Date: 01/20/25 Loc: HO.HHCX Attending Dr: Patricia Sun DO Ordering Physician: Patricia Sun DO Date of Service: 01/20/25 Procedure(s): XR hip LT min 2V Accession Number(s): [id number] cc: Patricia Snu DO EXAMINATION: XR HIP 2 OR MORE VIEWS LEFT HISTORY: PAIN COMPARISON: There are no prior studies for comparison. FINDINGS: Two views of the left hip are submitted. Osseous mineralization is normal. There is no fracture or dislocation. The joint space is maintained. The soft tissues are unremarkable. XR/XR hip LT min 2V IMPRESSION: Unremarkable examination of the left hip. Electronically signed by: Adrian Soliman MD 01/20/2025 12:52 PM EDT Dictated By: Adrian Soliman MD Signed By: <Electronically signed by Adrian Solimna MD in OV> 01/20/25 1252 DD/ 1136 TD/TT: 01/20/25 1220 [employer] Developer: Patricia Sun DO IMG XR PROCEDURES Final Resu lt * XR Shoulder 2+ Views Left (01/20/2025 11:36 AM EDT) Anatomical Region Laterality Modality Upper Extremities, Shoulder Left Radi ographic Imaging 01/20/2025 11:3 6 AM EDT Narrative 01/20/2025 12:56 PM EDT ?[place] [facility] ?[address] ?[place] [address] ?XRay Report ? Signed ? Patient: Valois,Jessica ?MR#: [id number] ?? 1244 ? : 1975 ?Acct:[id number] ? Age/Sex: 49 / F ?ADM Date: 01/20/25 ? Loc: HO.HHCX ? Attending Dr: Patricia Snu DO ? Ordering Physician: Patricia Sun DO ?? Date of Service: 01/20/25 ?? Procedure(s): XR shoulder LT min 2V ?? Accession Number(s): [id number] ? cc: Patricia Sun DO ? EXAMINATION: ?? XR SHOULDER, LEFT ? CLINICAL INFORMATION: ?? PAIN ? COMPARISON: ?? None available. ? TECHNIQUE: ?? AP external rotation, Grashey, scapular Y, and axillary views of the ?? left shoulder. ? FINDINGS: ?? No acute cortical disruption or malalignment. No lytic or blastic ?? lesions. No metallic or radiopaque foreign body. No subcutaneous ?? emphysema. ? XR/XR shoulder LT min 2V ?? IMPRESSION: ?? No acute fracture or dislocation. Negative exam. ? Electronically signed by: ??Rico Reardon MD ??01/20/2025 12:53 PM ?? EDT RP ? Dictated By: ?Rico Almanzar MD ? Signed By: ?<Electronically signed by Rico Trevino MD in OV> ? 01/20/25 1253 ? DD/ 1136 ? TD/TT: 01/20/25 1220 ? [employer] Developer: ? Procedure Note Pravin Aj - 01/20/[address] [address] XRay Report Signed Patient: Jessica AranaMR#: [id number] 1244 : 1975Acct:[id number] Age/Sex: 49 / FADM Date: 01/20/25 Loc: HO.HHCX Attending Dr: Patricia Sun DO Ordering Physician: Patricia Sun DO Date of Service: 01/20/25 Procedure(s): XR shoulder LT min 2V Accession Number(s): [id number] cc: Patricia Sun DO EXAMINATION: XR SHOULDER, LEFT CLINICAL INFORMATION: PAIN COMPARISON: None available. TECHNIQUE: AP external rotation, Grashey, scapular Y, and axillary views of the left shoulder. FINDINGS: No acute cortical disruption or malalignment. No lytic or blastic lesions. No metallic or radiopaque foreign body. No subcutaneous emphysema. XR/XR shoulder LT min 2V IMPRESSION: No acute fracture or dislocation. Negative exam. Electronically signed by: Rico Reardon MD 01/20/2025 12:53 PM EDT Dictated By: Rico Almanzar MD Signed By: <Electronically signed by Rico Trevino MDin OV> 01/20/25 1253 DD/ 1136 TD/TT: 01/20/25 1220 [employer] Developer: Patricia Sun DO IMG XR PROCEDURES Final Resu lt * XR Lumbar Spine 2-3 Views (01/20/2025 11:36 AM EDT) Anatomical Region Laterality Modality Spine, L-spine Radiographic Susanna ging 01/20/2025 11:3 6 AM EDT Narrative 01/20/2025 2:10 PM EDT ?[facility] ?[address] ?[place] [address] ?XRay Report ? Signed ? Patient: Sumit,Jessica ?MR#: [id number] ?? 1244 ? : 1975 ?Acct:[id number] ? Age/Sex: 49 / F ?ADM Date: 01/20/ ? Loc: HO.HHCX ? Attending Dr: Patricia Sun DO ? Ordering Physician: Patricia Sun DO ?? Date of Service: 01/20/25 ?? Procedure(s): XR lumbar spine 2-3V ?? Accession Number(s): [id number] ? cc: Patricia Sun DO ? EXAMINATION: ??XR LUMBAR SPINE 2-3 VIEWS ? HISTORY: PAIN ? COMPARISON: There are no prior studies for comparison. ? FINDINGS: ??AP, lateral, and coned down views of the lumbar spine are ?? submitted. ??Osseous mineralization is normal. ??There is mild ?? levoscoliosis. The vertebral bodies maintain normal height without ?? evidence of fracture or spondylolisthesis. ??The intervertebral disc ?? spaces are preserved. There is a limbus vertebra involving the superior ?? endplate of L4. ??The posterior elements are intact. ??There are numerous ?? calcifications overlying the lower pole of the right renal shadow. ? XR/XR lumbar spine 2-3V ?? IMPRESSION: ? 1. Mild levoscoliosis. ? 2. Probable extensive right nephrolithiasis. This could be confirmed ?? with ultrasound if desired. ? Electronically signed by: ??Adrian Soliman MD ??01/20/2025 02:08 PM EDT ? Dictated By: ?Adrian Soliman MD ? Signed By: ?<Electronically signed by Adrian Soliman MD in OV> ?01/20/25 1408 ? DD/ 1136 ? TD/TT: 01/20/25 1220 ? [employer] Developer: ? Procedure Note Jean Marie, Pravin - 01/20/[address] [address] XRay Report Signed Patient: Arnold Arana#: [id number] 1244 : 1975Acct:[id number] Age/Sex: 49 / FADM Date: 01/20/25 Loc: HO.HHCX Attending Dr: Patricia Sun DO Ordering Physician: Patricia Sun DO Date of Service: 01/20/25 Procedure(s): XR lumbar spine 2-3V Accession Number(s): [id number] cc: Patricia Sun DO EXAMINATION: XR LUMBAR SPINE 2-3 VIEWS HISTORY: PAIN COMPARISON: There are no prior studies for comparison. FINDINGS: AP, lateral, and coned down views of the lumbar spine are submitted. Osseous mineralization is normal. There is mild levoscoliosis. The vertebral bodies maintain normal height without evidence of fracture or spondylolisthesis. The intervertebral disc spaces are preserved. There is a limbus vertebra involving the superior endplate of L4. The posterior elements are intact. There are numerous calcifications overlying the lower pole of the right renal shadow. XR/XR lumbar spine 2-3V IMPRESSION: 1. Mild levoscoliosis. 2. Probable extensive right nephrolithiasis. This could be confirmed with ultrasound if desired. Electronically signed by: Adrian Soliman MD 01/20/2025 02:08 PM EDT RP Dictated By: Adrian Soliman MD Signed By: <Electronically signed by Adrian Soliman MD in OV> 01/20/25 1408 DD/ 1136 TD/TT: 01/20/25 1220 Oracle Etl Developer: us Patricia Sun DO IMG XR PROCEDURES Final Resu lt * Vitamin D, 25-Hydroxy, Total, Immunoassay (01/14/2025 12:12 PM EDT) Vitamin D 25-OH Total 32.1 >30 ng/mL [facility] Comment: Health Based Reference Values*< 20 ??ng/mL ??Utyjxzozo68-62 ng/mL ??Insufficient> 30 ??ng/mL ??Sufficient*Christi SIMMS. N Engl J Med. 2007;357:266-280There is no well-established upper level of normal vitamin Dlevels. Some laboratories use 50 ng/mL as an upper limit ofnormal. However, toxicity is patient-dependent and may occurat any level. Careful correlation with the patient'spresentation is necessary and, if there is concern forvitamin D toxicity, treatment should be consideredirrespective of the serum level.Care must be taken in interpreting Vitamin D results fromdifferent laboratories and methodologies. ??Published datademonstrated that results from patients undergoinghemodialysis may show a negative bias when tested withvarious automated 25-OH vitamin D assays when compared toLC- MS/MS.When testing samples from patients whose predominant form ofVitamin D is Vitamin D2, such as patients receiving VitaminD2 supplementation, results that are subtherapeutic shouldbe confirmed with another method such as LC-MS/MS. Blood Venous blood specimen / Unknown 01/14/2025 12:12 PM EDT 01/14/2025 1:07 PM EDT us Patricia Sun DO LAB BLOOD ORDERABLES Final R esult [facility] [address] [place] [phone] * CBC auto differential (01/14/2025 12:12 PM EDT) White Blood Count 6.9 4.8 - 10.8 X10*3/uL [facility] Red Blood Count 4.60 4.20 - 5.50 X10*6/uL [facility] Hemoglobin 14.4 12.0 - 16.0 g/dl [facility] Hematocrit 42.2 37.0 - 47.0 % [facility] Mean Corpuscular Volume 91.7 80.0 - 98.0 fL [facility] Mean Corpuscular Hemoglobin 31.3 27.0 - 33.0 pg [facility] Mean Corpuscular HGB Conc 34.1 31.0 - 35.0 g/dl [facility] Red Cell Distribution Width 11.9 11.0 - 16.0 % [facility] Platelet Count 277 160 - 400 X10*3/uL [facility] Mean Platelet Volume 9.6 9.4 - 12.3 fL [facility] Neutrophils Percent Auto 71.5 45 - 73 % [facility] Imm Gran Pct Auto 0.1 0.0 - 0.4 % [facility] Lymphocytes Percent Auto 23.1 20 - 40 % [facility] Monocytes Percent Auto 4.2 2 - 11 % [facility] Eosinophils Percent Auto 0.7 0 - 4 % [facility] Basophils Percent Auto 0.4 0 - 2 % [facility] NRBC Pct Auto 0.0 0.0 - 0.2 /100WBC [facility] Neutrophils Absolute Auto 4.9 2.0 - 8.3 x10*3/uL [facility] Imm Gran Abs Auto 0.01 0.00 - 0.03 X10*3/uL [facility] Lymphocytes Absolute Auto 1.6 1.2 - 4.9 X10*3/uL [facility] Monocytes Absolute Auto 0.3 0.1 - 1.2 X10*3/uL [facility] Eosinophils Absolute Auto 0.1 0.0 - 0.4 X10*3/uL [facility] Basophils Absolute Auto 0.0 0.0 - 0.2 X10*3/uL [facility] NRBC Abs Auto 0.000 0.0 - 0.012 X10*3/uL [facility] 01/14/2025 12:1 2 PM EDT 01/14/2025 1:07 PM EDT us Patricia Sun DO LAB BLOOD ORDERABLES Final R esult [facility] [address] [place] [phone] * (ABNORMAL) Urinalysis Complete (01/14/2025 12:12 PM EDT) Color Urine Yellow [facility] Appearance Urine Cloudy [facility] PH 5.5 5.0 - 9.0 [facility] Glucose Urine UA Negative Negative mg/dL [facility] Urine Blood Negative Negative [facility] Specific [place] - Urine 1.025 1.005 - 1.025 [facility] Urine Protein Negative Neg-Trace mg/dL [facility] Urine Ketones Trace Negative mg/dL [facility] Nitrite Urine Positive(A) Negative [facility] Leukocyte Esterase Urine Small (1+)(A) Negative [facility] RBC Urine 0-2 0 - 2 /HPF [facility] Urine WBC 21-50(A) 0 - 5 /HPF [facility] Urine Squamous Epithelial Cell >20 0 - 2 /HPF [facility] Urine Bacteria 4+ None Seen [facility] Hyaline Casts, Urine 0-2 0 - 2 /LPF [facility] Urine (Urine, Random) 01/14/2025 12:12 PM EDT 01/14/2025 1:07 PM EDT Patricia Dino DO LAB URINE ORDERABLES Final R esult [facility] [address] [place] [phone] * Sed Rate by Modified [place] (01/14/2025 12:12 PM EDT) Erythrocyte Sedimentation Rate 11 0 - 20 MM/HR [facility] Comment:Patients with polycy themia and many hemoglobin abnormalitiesmay have depressed sed rates whereas patients with anemiamay have elevated sed rates. Blood Venous blood specimen / Unknown 01/14/2025 12:12 PM EDT 01/14/2025 1:07 PM EDT Patricia Dino DO LAB BLOOD ORDERABLES Final R esult Performing Organization Address [facility]/ZIP Co de Phone Number [facility] [address] [place] [phone] * C-reactive Protein (01/14/2025 12:12 PM EDT) C Reactive Protein 0.43 < or = 0.50 mg/dL [facility] Blood Venous blood specimen / Unknown 01/14/2025 12:12 PM EDT 01/14/2025 1:07 PM EDT Patricia Dino DO LAB BLOOD ORDERABLES Final R esult Performing Organization Address City/[facility]/ZIP Co de Phone Number [facility] [address] [place] [phone] * TSH (01/14/2025 12:12 PM EDT) Thyroid Stimulating Hormone 2.72 0.32 - 4.0 uIU/mL [facility] Comment:Note: A sustained TS H level above 2.5 uIU/mL may warrant further investigation. TSH 3rd Generation ([facility]) Blood Venous blood specimen / Unknown 01/14/2025 12:12 PM EDT 01/14/2025 1:07 PM EDT Patricia Higginsquintinjoey DO LAB BLOOD ORDERABLES Final R esult Performing Organization Address City/[facility]/ZIP Co de Phone Number [facility] [address] [place] [phone] * T4, Free (01/14/2025 12:12 PM EDT) Free T4 (Free Thyroxine) 1.00 0.71 - 1.85 ng/dL [facility] Blood Venous blood specimen / Unknown 01/14/2025 12:12 PM EDT 01/14/2025 1:07 PM EDT Patricia Dino DO LAB BLOOD ORDERABLES Final R esult Performing Organization Address City/[facility] Co de Phone Number [facility] [address] [place] [phone] * Hemoglobin A1c (01/14/2025 12:12 PM EDT) Hemoglobin A1c 4.8 <6.0 % [facility] Comment:Hemoglobin A1C Refer ence Range Adults: 4.8 - 6.0 % Non diabetic: < 6.0 % Goal: < 7.0 %Additional Action Suggested: > 8.0 %Note: Hemoglobin A1c results are invalid for patients with abnormal amounts of HbF. Blood transfusions may impact the HbA1c concentration in the patient sample. Estimated Average Glucose 91 mg/dL [facility] Comment:eAG = Estimated ave rage glucose which is %A1C expressed asaverage glucose, using the formula of the I5K-AhagqhwOeonjyo Glucose study (ADAG), Diabetes Care, Vol.31,#8,2007 Blood Venous blood specimen / Unknown 01/14/2025 12:12 PM EDT 01/14/2025 1:07 PM EDT Patricia Sun DO LAB BLOOD ORDERABLES Final R esult Performing Organization Address City/[facility]/ZIP Co de Phone Number [facility] [address] [place] [phone] * Creatine Kinase, Total (01/14/2025 12:12 PM EDT) Creatine Kinase Total 49 26 - 140 U/L [facility] Blood Venous blood specimen / Unknown 01/14/2025 12:12 PM EDT 01/14/2025 1:07 PM EDT us Patricia Sun DO LAB BLOOD ORDERABLES Final R esult Performing Organization Address [facility] Co de Phone Number [facility] [address] [place] [phone] * (ABNORMAL) Hepatic Function Panel (01/14/2025 12:12 PM EDT) Bilirubin, Total 0.5 0.0 - 1.0 mg/dL [facility] Bilirubin, Direct 0.2 0.0 - 0.5 mg/dL [facility] Aspartate Amino Transferase 23 5 - 31 U/L [facility] Alanine Aminotransferase 38(H) 0 - 31 U/L [facility] Total Protein 7.7 6.5 - 8.0 g/dL [facility] Albumin Level 4.3 3.5 - 5.0 g/dL [facility] Alkaline Phosphatase 134(H) 39 - 117 U/L [facility] Blood Venous blood specimen / Unknown 01/14/2025 12:12 PM EDT 01/14/2025 1:07 PM EDT Patricia Sun DO LAB BLOOD ORDERABLES Final R esult Performing Organization Address City/[facility] Co de Phone Number [facility] [address] [place] [phone] * (ABNORMAL) Lipid Panel, Standard (01/14/2025 12:12 PM EDT) Triglycerides 84 <150 mg/dL [facility] Comment:Desirable Triglyceri de: less than 150 mg/dLBorderline High Triglyceride 150-199 mg/dLHigh Triglyceride: 200-499 mg/dLVery High Triglyceride: greater than or equal to 5OO mg/dL Cholesterol 180 <200 mg/dL [facility] Comment:Desirable Cholestero l: less than 200 mg/dLBorderline High Cholesterol: 200-239 mg/dLHigh Cholesterol: greater than 239 mg/dL LDL Cholesterol Calculated 120(H) <100 mg/dL [facility] Comment:Desirable LDL: less than 100 mg/dLNear Optimal/Above Optimal LDL: 110- 129 mg/dLBorderline High LDL: 130-159 mg/dLHigh LDL: 160-189 mg/dLVery High LDL: greater than or equal to 190 mg/dL HDL Cholesterol 44 >40 mg/dL [facility] Comment:Desirable HDL: great er than 40 mg/dL Note: This HDL assay may give artificially low results in patients with liver disease. Blood Venous blood specimen / Unknown 01/14/2025 12:12 PM EDT 01/14/2025 1:07 PM EDT us Patricia Sun DO LAB BLOOD ORDERABLES Final R esult [facility] [address] [place] [phone] * (ABNORMAL) Basic Metabolic Panel (01/14/2025 12:12 PM EDT) Sodium 142 135 - 145 mmol/L [facility] Potassium 3.8 3.3 - 5.1 mmol/L [facility] Chloride 110(H) 96 - 108 mmol/L [facility] Carbon Dioxide 23 22 - 29 mmol/L [facility] Anion Gap 13 12 - 20 [facility] Urea Nitrogen (BUN) 13 9 - 16 mg/dL [facility] Creatinine, Serum 0.84 0.5 - 1.4 mg/dL [facility] Estimated Glomerular Filt Rate >60 [facility] Comment:Chronic Kidney Disea se: Estimated GFR < 60 mL/min/1.27w5Furxdv Kidney Disease: Estimated GFR < 15 mL/min/1.73m2 Glucose 103 60 - 115 mg/dL [facility] Calcium 9.3 8.4 - 10.2 mg/dL [facility] Blood Venous blood specimen / Unknown 01/14/2025 12:12 PM EDT 01/14/2025 1:07 PM EDT us Patricia Sun DO LAB BLOOD ORDERABLES Final R esult [facility] [address] [place] [phone] * EMG (01/13/2025) us Patricia Sun DO NEUROLOGY ORDERABLES Final R esult * US Pelvis Transvaginal (12/19/2024 10:43 AM EST) Anatomical Region Laterality Modality Pelvis Ultrasound 12/19/2024 10:4 3 AM EST Narrative 12/19/2024 10:44 AM EST ? [facility] ?[address] ?[place] [address] ? Ultrasound Report ? Signed ? Patient: Sumit,Jessica ?MR#: [id number] ?? 1244 ? : 1975 ?Acct:[id number] ? Age/Sex: 49 / F ?ADM Date: 02/19/25 ? Loc: HO.US ? Attending Dr: Patricia Sun DO ? Ordering Physician: Patricia Sun DO ?? Date of Service: 12/18/24 ?? Procedure(s): US pelvic and transvaginal ?? Accession Number(s): [id number] ? cc: Patricia Sun DO ? CLINICAL HISTORY: episode of post menopausal spotting ? US pelvis Transabdominal and transvaginal ? Comparison: None ? Findings: ?? Uterus measures 5.9 x 3.3 x 4.1 cm ?? Normal myometrium. ?? Endometrium 4 mm thickness. ? Right ovary 1.8 x 1.2 x 1m. ?? Left ovary 1.4 x 1.2 x 1.6 cm. ? No free fluid. ? IMPRESSION: ?? Unremarkable exam. No evidence of endometrial thickening. ? This document has been electronically signed by: Oksana Carmona MD on ?? 12/19/2024 10:43:26 ? Dictated By: ?Oksana Carmona MD ? Signed By: ?<Electronically signed by Oksana Carmona MD in OV> ? 12/19/24 1044 ? DD/ 1043 ? TD/TT: 12/19/24 1043 ? [employer] Etl Developer: ? Procedure Note Donotbreeinterpreter, Image - 12/19/2024 [place] [id number] Ultrasound Report Signed Patient: Arnold Arana#: [id number] 1244 : 1975Acct:[id number] Age/Sex: 49 / FADM Date: 12/18/24 Loc: HO.US Attending Dr: Patricia Sun DO Ordering Physician: Patricia Sun DO Date of Service: 12/18/24 Procedure(s): US pelvic and transvaginal Accession Number(s): [id number] cc: Patricia Sun DO CLINICAL HISTORY: episode of post menopausal spotting US pelvis Transabdominal and transvaginal Comparison: None Findings: Uterus measures 5.9 x 3.3 x 4.1 cm Normal myometrium. Endometrium 4 mm thickness. Right ovary 1.8 x 1.2 x 1m. Left ovary 1.4 x 1.2 x 1.6 cm. No free fluid. IMPRESSION: Unremarkable exam. No evidence of endometrial thickening. This document has been electronically signed by: Oksana Carmona MD on 12/19/2024 10:43:26 Dictated By: Oksana Carmona MD Signed By: <Electronically signed by Oksana Carmona MD in OV> 12/19/24 1044 DD/ 1043 TD/TT: 12/19/24 1043 [employer] Etl Developer: Patricia Sun DO IMG US PROCEDURES Final Resu lt * OCT, Optic Nerve - OU - [...] Will monitor at her her next exam. Result [facility] Aura Champagne OD OPHTH TOMOGRAPHY Edited * Hepatitis C Antibody with Reflex to HCV, RNA, Quantitative, Real-Time PCR (10/24/2024 1:54 PM EST) Hepatitis C Antibody Nonreactive Nonreactive [facility] Comment:Antibodies to HCV no t detected; does not exclude early acuteHCV infection. Blood Venous blood specimen / Unknown 10/24/2024 1:54 PM EST 10/24/2024 1:54 PM EST Patricia Sun DO LAB BLOOD ORDERABLES Final R esult [facility] [address] [place] [phone] * HIV-1/2 Antigen and Antibodies, Fourth Generation, with Reflexes (10/24/2024 1:54 PM EST) HIV AB/AG Nonreactive Nonreactive [facility] Comment:HIV-1 p24 Ag and/or HIV-1/HIV-2 Ab not detected.A test result that is nonreactive does not exclude thepossibility of exposure to or infection with HIV-1 and/orHIV-2. Nonreactive results in this assay for individualswith prior exposure to HIV-1 and/or HIV-2 may be due toantigen and antibody levels that are below the limit ofdetection of this assay.The [employer] HIV Ag/Ab Combo assay result andsupplemental assay results should be interpreted inconjunction with the patient's clinical presentation,history and other laboratory results. If the results areinconsistent with clinical evidence, additional testing issuggested to confirm the result. Blood Venous blood specimen / Unknown 10/24/2024 1:54 PM EST 10/24/2024 1:54 PM EST us Patricia Sun DO LAB BLOOD ORDERABLES Final R esult [facility] [address] [place] [phone] from Last 3 Months or Most Recently Relevant to Health Maintenance [place] [place] [address] C3 Care Teams Gre Instructor Relationship Specialty Start Date End Date Patricia Sun DO [address] [place] [phone] PCP - General Family Medicine 10/10/24
--- OUTSIDE RECORDS SUMMARY | 2025-01-30 12:28 | XMS_ITS | Encounter Summary ---
Author Organization [employer] Address [address] [place] [address] Care Team Providers Care Orthopedic Brace Maker Name Role Phone Patricia Sun DO Primary Care Provider + [phone] Encounter Details Date Type Department Care Team ([facility] st Contact Info) Description 01/15/2025 Telephone [facility] [address] [place] [address] Patricia Sun DO [address] [place] [address] Social History Tobacco Use Types Packs/Day Years [...] encounter Miscellaneous Notes * Telephone Encounter - Patricia Sun DO - 01/15/2025 2:36 PM EDT Called [facility] neurology. Awaiting for call back. documented in this encounter Plan of Treatment Upcoming Encounters Date Type Department Care Team (Late st Contact Info) Description 03/19/2025 3:30 PM EDT Office Visit [facility] [address] [place] [address] Ihsan, Aura, OD [address] [place] [address] documented as of this encounter Visit Diagnoses Not on filedocumented in this encounter Additional Health Concerns Assessment Noted Time PHQ-9 Depression Total Score: 5 10/10/20 11:44 AM EST documented as of this encounter Care Teams Orthopedic Brace Maker Relationship Specialty Start Date End Date Patricia Sun DO [address] [place] [address] PCP - General Family Medicine 10/10/24 documented as of this encounter
--- OUTSIDE RECORDS SUMMARY | 2025-01-30 12:28 | XMS_ITS | Clinical Summary ---
Author Organization [facility] Address [address] [place] [address] Phone Care Team Providers Care Nurse Office Name Role Phone Jalen Martinez MD Primary [...] Encounters Date Type Department Care Team Description 01/29/2025 11:00 AM EDT Treatment [facility] Occupational [facility] [address] [phone] Lauri Rivera COTA/Teena Hemiparesis of left nondominant side, unspecified hemiparesis etiology (CMS/HCC) (Primary Dx) 01/28/2025 Patient Outreach [facility] [address] [phone] Rosy Valero, DAMAGE APPRAISER 01/23/2025 Patient Outreach [facility] [address] [phone] Rosy Valero, DAMAGE APPRAISER 01/08/2025 Telephone [facility] [address] [phone] Bea Rebollar, DANIEL 12/26/2024 12:00 PM EST Treatment [facility] [address] [phone] Jayjay Childs, MANUELA Subarachnoid hemorrhage (CMS/HCC) (Primary Dx) 12/26/2024 11:15 AM EST Treatment [facility] Occupational [address] [phone] Erasmo Choudhury OT Hemiparesis of left nondominant side, unspecified hemiparesis etiology (CMS/HCC) (Primary Dx); SAH (subarachnoid hemorrhage) (CMS/HCC) 12/24/2024 12:30 PM EST Treatment [facility] Occupational [facility] [address] [phone] Lauri Rivera, GODOY/L Hemiparesis of left nondominant side, unspecified hemiparesis etiology (CMS/HCC) (Primary Dx); SAH (subarachnoid hemorrhage) (CMS/HCC); Subarachnoid hemorrhage (CMS/HCC) 12/19/2024 1:45 PM EST Treatment [address] [phone] Jayjay Childs PTA Subarachnoid hemorrhage (CMS/HCC) (Primary Dx) 12/19/2024 1:00 PM EST Treatment [address] [phone] Lauri Rivera, GODOY/L Hemiparesis of left nondominant side, unspecified hemiparesis etiology (CMS/HCC) (Primary Dx); SAH (subarachnoid hemorrhage) (CMS/HCC); Subarachnoid hemorrhage (CMS/HCC) 12/12/[address] [phone] Lauri Rivera, GODOY/L 12/06/2024 1:15 PM EST Treatment [address] [phone] Lauri Rivera, GODOY/Teena Hemiparesis of left nondominant side, unspecified hemiparesis etiology (CMS/HCC) (Primary Dx); SAH (subarachnoid hemorrhage) (CMS/HCC); Subarachnoid hemorrhage (CMS/HCC) 12/06/2024 12:30 PM EST Treatment [address] [phone] Jayjay Childs PTA Subarachnoid hemorrhage (CMS/HCC) (Primary Dx) 12/04/2024 1:15 PM EST Treatment [address] [phone] Jayjay Childs PTA SAH (subarachnoid hemorrhage) (CMS/HCC) (Primary Dx) 12/04/2024 12:30 PM EST Treatment [address] [phone] Miriam Parks P, OTR/L Hemiparesis of left nondominant side, unspecified hemiparesis etiology (CMS/HCC) (Primary Dx); SAH (subarachnoid hemorrhage) (CMS/HCC) 12/02/2024 12:30 PM EST Treatment [facility] Occupational Therapy [address] [phone] Erasmo Choudhury, OT SAH (subarachnoid hemorrhage) ([facility]) (Primary Dx) 11/26/2024 1:15 PM EST Treatment [facility] Occupational Therapy [address] [phone] Lauri Rivera, GODOY/L SAH (subarachnoid hemorrhage) ([facility]) (Primary Dx); Subarachnoid hemorrhage (CMS/HCC) 11/21/2024 2:15 PM EST Treatment [facility] [address] [phone] Mary Olmstead, PT SAH (subarachnoid hemorrhage) ([facility]) (Primary Dx) 11/21/2024 1:00 PM EST Treatment [facility] Occupational [facility] [address] [phone] Consuelo Ro GODOY SAH (subarachnoid hemorrhage) ([facility]) (Primary Dx) 11/14/2024 1:45 PM EST Treatment [facility] Occupational [address] [phone] Consuelo Ro GODOY 11/14/2024 1:00 PM EST Treatment [address] [phone] Adrian Hoyt, PT Subarachnoid hemorrhage ([facility]) (Primary Dx) 11/12/2024 Patient Outreach [facility] [address] [phone] Rosy Valero LCSW 11/11/2024 2:45 PM EST Treatment [facility] Occupational [address] [phone] Erasmo Choudhury, OT SAH (subarachnoid hemorrhage) ([facility]) (Primary Dx) 11/06/2024 2:30 PM EST Evaluation [address] [phone] Bea Rebollar, PT SAH (subarachnoid hemorrhage) ([facility]) (Primary Dx); Subarachnoid hemorrhage ([facility]) 11/06/2024 1:15 PM EST Treatment [facility] Occupational Therapy [address] [phone] Lauri Rivera COTA/Teena 11/04/2024 12:30 PM EST Evaluation [facility] Occupational Therapy [address] [phone] Erasmo Choudhury, OT SAH (subarachnoid hemorrhage) ([facility]); Subarachnoid hemorrhage ([facility]) 11/04/2024 Plan of Care Documentation [facility] Occupational Therapy [address] [place] [phone] from Last 3 Months Medical History Medical History Date Comments Muscular weakness 09/03/2024 Spasticity 09/03/2024 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 Traumatic subarachnoid hemorrhage A-fib ([facility]) 09/05/2024 Social History Tobacco Use Types Packs/Day Years Used Date Smoking Tobacco: Former Cigarettes Q uit: 2012 Tobacco Cessation:Counseling Given: Not Answered Alcohol Use [...] Info) Description 02/05/2025 12:45 PM EDT Treatment [facility] [address] [phone] Jayjay Childs PTA 02/05/2025 1:30 PM EDT Treatment [facility] Occupational Therapy [address] [phone] Erasmo Choudhury, OT 02/07/2025 10:30 AM EDT Treatment [facility] Occupational Therapy [address] [phone] Lauri Rivera COTA/Teena 02/07/2025 11:15 AM EDT Treatment [facility] [address] [phone] Jayjay Childs PTA 02/11/2025 12:45 PM EDT Treatment [facility] Occupational Therapy [address] [phone] Consuelo Ro COTA 02/11/2025 1:30 PM EDT Treatment [facility] [address] [phone] Jayjay Childs PTA 02/13/2025 12:45 PM EDT Treatment [facility] Occupational Therapy [address] [phone] Lauri Rivera COTA/Teena 02/13/2025 1:30 PM EDT Treatment [facility] [address] [phone] Jayjay Childs, WIRELESS NETWORK ENGINEER 02/18/2025 10:00 AM EDT Treatment [facility] [address] [phone] Keturah Bea, PT 02/18/2025 10:45 AM EDT Treatment [facility] Occupational Therapy [address] [phone] Lauri Rivera COTA/Teena Health Maintenance Due Date Last Done Comments Breast Cancer Screening 1975 Hepatitis B Vaccines (1 of 3 - 19+ 3-dose series) 1993 Cervical Cancer Screening: P ap Smear 1995 DTaP,Tdap,and Td Vaccines (2 - Td or Tdap) 03/22/2022 03/22/2012 COVID-19 Vaccine ( - 2023-2 5 season) 2024 Colorectal Cancer Screening: Colonoscopy 09/03/2024 Pneumococcal Vaccine: 50+ Years (1 of 1 - PCV) 2024 Zoster Vaccines (1 of 2) 2024 Influenza Vaccine (Season Ended) 2025 Social Influencers of Health Screening 10/01/2025 10/01/2024 Depression Screening 10/10/2025 10/10/2024 Cholesterol Screening (Lipid Panel) 01/14/2030 01/14/2025, 10/24/2024 HIV Screening Completed 10/24/2024 Hepatitis C [...] age to complete this topic Pneumococcal Vaccine: Pediatrics (0 to 5 Years) and At-Risk Patients (6 to 64 Years) Aged Out No longer eligible b ased on patient's age to complete this topic RSV Immunization Patients Under 20 months Aged Out No longer eligible [...] visits General On track(2024 12:03 PM EST) Erasmo Burkett, OT Note: Patient will demo Lsh flex AROM>= 130 to be able to reach the soap in the shower - Met Patient will demo L sh abd AROM>= 100 to be able to dress with increased ease - met Patient will demo L photoengraving retoucher strength >= 19 to be able to [...] visits General No change(12/02 4:58 PM EST) Erasmo Burkett, OT Note: Patient will demo L UE AROM WFL Patient will demo L UE strength WFL for IADLs, Patient will demo L photoengraving retoucher strength >= 24# to be able to [...] with 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 Pt will improve L hip flexion, extension and abduction to >/= 4/5 for strength and stability Pt will be independent with HEP for maintenance of gains made in skilled physical therapy Insurance [place] - [place] Advance Directives Documents on File Type Date Recorded Patient Reverser Expl anation Advance Directives and Living Will [...] currently active code status orders. Care Teams Nurse Office Relationship Specialty Start Date End Date Jalen Martinez MD [address] [place] [phone] PCP - General Internal Medicine 10/01/24
--- OUTSIDE RECORDS SUMMARY | 2025-01-30 12:28 | XMS_ITS | Encounter Summary ---
Author Organization [facility] Address [address] [place] [address] Care Team Providers Care Coke Loader Name Role Phone Jalen Martinez MD Primary Care [facility] Reason for Visit * Consultation (Routine) - Authorized Specialty Diagnoses / Procedures Referred By Contac t Referred To Contact Occupational Therapy Diagnoses SAH (subarachnoid hemorrhage) (CMS/HCC) Subarachnoid hemorrhage (CMS/HCC) Dayana James, [place] [address] Phone: tel: fax: [facility] Occupational Therapy [address] [place] [phone] Phone: tel: fax: Referral ID Status Reason Start Date Expiration Date Visits Requested Visits Authorized [id number] Authorized Specialty Services Required 4 09/11/2025 20 17 Encounter Details Date Type Department Care Team (Late st Contact Info) Description 01/29/2025 11:00 AM EDT Treatment [facility] [address] [place] [phone] Lauri Rivera COTA/L Hemiparesis of left nondominant side, unspecified hemiparesis etiology (CMS/HCC) (Primary Dx) Social History Tobacco Use [...] this encounter Progress Notes * OTTO Elizabeth 01/29/2025 11:00 AM EDT [facility] - Outpatient OCCUPATIONAL THERAPY DAILY TREATMENT NOTE Date: 01/29/2025 Visit Number: [id number] Patient Name: Jessica Arana : 1975 Age: 49 y.o. Gender: female Diagnosis: ICD-10-CM ICD-9-CM 1. Hemiparesis of left nondominant side, unspecified hemiparesis etiology ([facility]) G81.94 342.92 Date of Onset: 09/11/2024 Referring Provider: Dayana James DO Insurance: [place] / [place] / Product Type: *No Product type* / [...] ibuprofen. Precautions: None specified SUBJECTIVE Subjective Report: they gave me the Ok to try therapy. They have started me on pain meds to help but its still painful. Chart Reviewed: Yes Pain: 6 TREATMENT INTERVENTION Procedures: There ex: -Reciprocal pulleys for L UE end range stretching. UBE X 5 min in each direction for scap gliding and increased strengthening Neuro re ed- fine motor task of placing small pins into peg board for increased dexterity. Pain Reassessment: no change Assessment/Response To Treatment: Good Educated on exercises for HEP that do not cause increased pain. Patient Education: Education provided: Yes Education Provided [...] Info) Description 02/05/2025 12:45 PM EDT Treatment [facility] Outpatient [facility] [address] [phone] Jayjay Childs PTA 02/05/2025 1:30 PM EDT Treatment [facility] Occupational Therapy [address] [phone] Erasmo Choudhury OT 02/07/2025 10:30 AM EDT Treatment [facility] Occupational Therapy [address] [phone] Lauri Rivera, GODOY/L 02/07/2025 11:15 AM EDT Treatment [facility] [address] [phone] Jayjay Childs, BEAUTY SCHOOL INSTRUCTOR 02/11/2025 12:45 PM EDT Treatment [facility] Occupational Therapy [address] [phone] Consuelo Ro GODOY 02/11/2025 1:30 PM EDT Treatment [facility] [address] [phone] Jayjay Childs, BEAUTY SCHOOL INSTRUCTOR 02/13/2025 12:45 PM EDT Treatment [facility] Occupational Therapy [address] [phone] Lauri Rivera, GODOY/L 02/13/2025 1:30 PM EDT Treatment [facility] [address] [phone] Jayjay Childs, BEAUTY SCHOOL INSTRUCTOR 02/18/2025 10:00 AM EDT Treatment [facility] [address] [phone] Bea Rebollar, PT 02/18/2025 10:45 AM EDT Treatment [facility] Occupational Therapy [address] [phone] Lauri Rivera, GODOY/L documented as of this encounter Goals Goal Patient Goal Type Associated Problems Recent Progress Patient-Stated? 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 Pt will improve L hip flexion, extension and abduction to >/= 4/5 for strength and stability Pt will be independent with HEP for maintenance of gains made in skilled physical therapy documented as of this encounter Visit Diagnoses Diagnosis Hemiparesis of left nondominant side, unspecified hemiparesis etiology (CMS/HCC)- Primary documented in this encounter Additional Health Concerns Assessment Noted Time PHQ-9 Depression Total Score: 0 10/01/20 24 5:02 PM EST documented as of this encounter Care Teams Coke Loader Relationship Specialty Start Date End Date Jalen Martinez MD [address] [place] [phone] PCP - General Internal Medicine 10/01/24 documented as of this encounter
== END 2025-01-30 11:04 | disposition home or self-care (01) ==
LOC: HO.US 11:03
PROVIDERS: PCP Family Medicine; Visit Provider Family Medicine
DX: R93.7 Abnormal findings on diagnostic imaging of other parts of musculoskeletal system (principal)
CPT/HCPCS: 76775

== ENCOUNTER → 2025-01-30 11:38 | Outpatient (BNV) | payer MEDICAID, SELFPAY | PROVIDERS: PCP Family Medicine; Visit Provider Radiology Diagnostic Radiology | DX: N20.0 Calculus of kidney (principal) | CPT/HCPCS: 76775 ==